=== PATIENT | male | born 1980 | race Two or more races ===

== ENCOUNTER 2022-08-07 15:57 | Inpatient (IN) | payer OTHER ==
[~2022-08-07] VITALS: Ht 175.3 cm; Wt 124.0 kg
[2022-08-07] VITALS (7 sets, daily range): BP systolic 139–164; BP diastolic 95–106
[2022-08-07 16:37] LABS: Basophils # (auto) 0 10 ^3/uL (0-0.2); Basophils % (auto) 0.6 % (0.0-2.0); Eosinophils # (auto) 0.2 10 ^3/uL (0-0.8); Eosinophils % (auto) 2.4 % (0.0-7.0); Hematocrit 47.6 % (41.0-53.0); Lymphocytes % (auto) 24.8 % (10.0-50.0); Mean Corpuscular Hemoglobin 28.7 pg (28.0-32.0); Mean Corpuscular Hgb Conc. 33.6 g/dL (32.0-36.0); Mean Corpuscular Volume 85.3 fL (80.0-100.0); Monocytes # (auto) 0.4 10 ^3/uL (0-1.3); Monocytes % (auto) 5.3 % (0.0-12.0); Neutrophils # (auto) 5.5 10 ^3/uL (1.6-8.6); Neutrophils % (auto) 66.9 % (37.0-80.0); Nucleated Red Blood Cells % 0.8 %; Red Blood Cells 5.58 10^6/uL (4.5-5.90); Red Cell Distribution Width 15.3 % (11.8-14.3); White Blood Cell 8.2 10^3/uL (4.4-10.8)
[2022-08-07] MEDS ORDERED: hydrALAZINE HCL 20 MG/ML VL IV ONE (16:45)
[2022-08-07 16:59] LABS: Calcium 8.8 mg/dL (8.5-10.1); Magnesium 2.4 mg/dL (1.6-2.6); Potassium 3.9 mmol/L (3.5-5.1)
[2022-08-07 17:03] LABS: BUN/Creatinine Ratio 11.6 (10.0-20.0); Bilirubin, Total 1.9 mg/dL (0.2-1.0); Total Protein 7.6 g/dL (6.4-8.2)
[2022-08-07 17:19] LABS: INR 0.97 (0.9-1.15); Partial Thromboplastin Time 26.8 sec (24.6-33.4)
[2022-08-07] MEDS ORDERED: ASPirin 81 mg TAB PO ONE (18:15)
[2022-08-07] MEDS ORDERED: NITROGLYCERIN 50MG/250ML 250 ML IV SCH (18:15)
[2022-08-07] MEDS ORDERED: NITROGLYCERIN 0.4 MG SL TAB SL PRN (18:45)
[2022-08-07] MEDS ORDERED: ENOXAPARIN SOD 100 MG/1 ML SYRINGE SC ONE (18:45)
[2022-08-07] MEDS ORDERED: MORPHINE SULFATE INJ 2 MG/ml SYRG IV PRN (18:45)
[2022-08-07] MEDS ORDERED: SODIUM CHLORIDE 0.9% 1,000 ML IV SCH (18:45)
[2022-08-07 18:53] LABS: Cholesterol 149 mg/dL (< 200)
[2022-08-07 18:56] LABS: HDL Cholesterol 19 mg/dL (40-59); LDL Cholesterol 103 mg/dL (< 100); Triglycerides 261 mg/dL (< 150)
[2022-08-07] MEDS: ONDANSETRON HCL 4 MG/2 ML VIAL IV PRN (18:59)
[2022-08-07] MEDS: ATORVASTATIN 20 MG TAB PO SCH (23:36)
[2022-08-08] VITALS (43 sets, daily range): BP systolic 143–200; BP diastolic 83–137
[2022-08-08] MEDS: hydrALAZINE HCL 20 MG/ML VL IV PRN ×2 (02:28→13:48)
[2022-08-08] MEDS: ACETAMINOPHEN 325 MG TAB PO PRN ×2 (03:35→16:31)
[2022-08-08 03:48] LABS: Urine Bacteria NONE SEEN /hpf (None Seen); Urine Blood Negative /uL (Negative); Urine Hyaline Cast FEW /lpf (0 - 2); Urine Mucus FEW (None Seen); Urine Specific Gravity 1.018 (1.001-1.035); Urine WBC 1 /hpf (0 - 3)
[2022-08-08 04:11] LABS: Basophils # (auto) 0.1 10 ^3/uL (0-0.2); Basophils % (auto) 0.5 % (0.0-2.0); Eosinophils # (auto) 0.1 10 ^3/uL (0-0.8); Eosinophils % (auto) 0.7 % (0.0-7.0); Hematocrit 44.8 % (41.0-53.0); Hemoglobin 15.2 g/dL (13.5-17.5); Lymphocytes # (auto) 1.8 10 ^3/uL (0.4-5.4); Lymphocytes % (auto) 19.6 % (10.0-50.0); Mean Corpuscular Hgb Conc. 33.9 g/dL (32.0-36.0); Mean Corpuscular Volume 85.6 fL (80.0-100.0); Monocytes # (auto) 0.7 10 ^3/uL (0-1.3); Monocytes % (auto) 6.9 % (0.0-12.0); Neutrophils # (auto) 6.8 10 ^3/uL (1.6-8.6); Neutrophils % (auto) 72.3 % (37.0-80.0); Nucleated Red Blood Cells % 0.1 %; Red Blood Cells 5.23 10^6/uL (4.5-5.90); Red Cell Distribution Width 15.5 % (11.8-14.3); White Blood Cell 9.4 10^3/uL (4.4-10.8)
[2022-08-08 04:27] LABS: Albumin 3.7 g/dL (3.4-5.0); Calcium 8.6 mg/dL (8.5-10.1); Potassium 3.8 mmol/L (3.5-5.1)
[2022-08-08 04:30] LABS: BUN/Creatinine Ratio 12.6 (10.0-20.0); Total Protein 7.3 g/dL (6.4-8.2)
[2022-08-08] MEDS ORDERED: ENOXAPARIN SOD 100 MG/1 ML SYRINGE SC SCH (07:00)
[2022-08-08] MEDS ORDERED: HCTZ 25 MG TAB PO ONE (08:00)
[2022-08-08] MEDS ORDERED: LISINOPRIL 20 MG TAB PO ONE (08:00)
[2022-08-08 08:34] LABS: Alcohol, Urine < 3.0 mg/dL (0-10); Amphetamine Screen, Urine NEGATIVE (NEGATIVE); Barbiturate Scree,Urine NEGATIVE (NEGATIVE); Benzodiazephine Screen, Urine NEGATIVE (NEGATIVE); Cannabinoid Screen, Urine NEGATIVE (NEGATIVE); Cocaine Screen, Urine NEGATIVE (NEGATIVE); Phencyclidine Screen, Urine NEGATIVE (NEGATIVE)
[2022-08-08 09:11] LABS: Opiate Scree,Urine NEGATIVE (NEGATIVE)
[2022-08-08] MEDS: amLODIPine BESYLATE 5 MG TAB PO SCH (10:58)
[2022-08-08] MEDS: ENOXAPARIN SOD 120 MG/0.8 ML SYRINGE SC SCH ×2 (10:58→21:04)
[2022-08-08] MEDS: ASPirin 81 mg TAB PO SCH (10:58)
[2022-08-08] MEDS ORDERED: cloNIDine HCL 0.1 MG TAB PO PRN (15:30)
[2022-08-08] MEDS: hydrALAZINE HCL 25 MG TAB PO SCH ×2 (17:56→23:57)
[2022-08-08] MEDS: ATORVASTATIN 20 MG TAB PO SCH (21:04)
[2022-08-08] MEDS ORDERED: ATORVASTATIN 20 MG TAB PO SCH (22:00)
[2022-08-09 05:00] VITALS: BP 163/102
[2022-08-09] MEDS: hydrALAZINE HCL 25 MG TAB PO SCH ×4 (06:00→23:01)
[2022-08-09 06:13] LABS: Basophils # (auto) 0.1 10 ^3/uL (0-0.2); Basophils % (auto) 0.7 % (0.0-2.0); Eosinophils # (auto) 0.2 10 ^3/uL (0-0.8); Hemoglobin 15.6 g/dL (13.5-17.5); Lymphocytes # (auto) 1.8 10 ^3/uL (0.4-5.4); Lymphocytes % (auto) 19.7 % (10.0-50.0); Mean Corpuscular Hemoglobin 28.8 pg (28.0-32.0); Mean Corpuscular Hgb Conc. 33.8 g/dL (32.0-36.0); Mean Corpuscular Volume 85.1 fL (80.0-100.0); Monocytes # (auto) 0.8 10 ^3/uL (0-1.3); Monocytes % (auto) 8.4 % (0.0-12.0); Neutrophils # (auto) 6.3 10 ^3/uL (1.6-8.6); Neutrophils % (auto) 69.2 % (37.0-80.0); Nucleated Red Blood Cells % 0.2 %; Red Blood Cells 5.41 10^6/uL (4.5-5.90); Red Cell Distribution Width 15.3 % (11.8-14.3); White Blood Cell 9.1 10^3/uL (4.4-10.8)
[2022-08-09 06:40] LABS: Potassium 3.6 mmol/L (3.5-5.1)
[2022-08-09 07:37] LABS: Albumin 3.7 g/dL (3.4-5.0)
[2022-08-09 07:41] LABS: BUN/Creatinine Ratio 11.8 (10.0-20.0); Bilirubin, Total 2.8 mg/dL (0.2-1.0); Calcium 8.6 mg/dL (8.5-10.1)
[2022-08-09 07:42] LABS: Total Protein 7.1 g/dL (6.4-8.2)
[2022-08-09 09:00] VITALS: BP 144/88
[2022-08-09] MEDS: amLODIPine BESYLATE 5 MG TAB PO SCH (09:17)
[2022-08-09] MEDS: ENOXAPARIN SOD 120 MG/0.8 ML SYRINGE SC SCH ×2 (09:17→22:38)
[2022-08-09] MEDS: ASPirin 81 mg TAB PO SCH (09:17)
[2022-08-09] MEDS: HCTZ 25 MG TAB PO SCH (09:18)
[2022-08-09] MEDS: LISINOPRIL 20 MG TAB PO SCH (09:18)
[2022-08-09] MEDS ORDERED: LISINOPRIL 20 MG TAB PO SCH (10:00)
[2022-08-09] MEDS ORDERED: HCTZ 25 MG TAB PO SCH (10:00)
[2022-08-09] MEDS: CARVEDILOL 3.125 MG TAB PO SCH ×2 (11:36→22:39)
[2022-08-09 13:00] VITALS: BP_SYST 145; BP_SYST 161; BP_DIAS 106; BP_DIAS 110
[2022-08-09 17:26] VITALS: BP 133/87
[2022-08-09 22:00] VITALS: BP 152/91
[2022-08-09] MEDS: ATORVASTATIN 20 MG TAB PO SCH (22:38)
[2022-08-10 05:00] VITALS: BP 148/99
[2022-08-10] MEDS: hydrALAZINE HCL 25 MG TAB PO SCH ×4 (06:17→21:24)
[2022-08-10 09:00] VITALS: BP 160/118
[2022-08-10] MEDS: amLODIPine BESYLATE 5 MG TAB PO SCH (09:33)
[2022-08-10] MEDS: HCTZ 25 MG TAB PO SCH (09:34)
[2022-08-10] MEDS: CARVEDILOL 3.125 MG TAB PO SCH (09:35)
[2022-08-10] MEDS: LISINOPRIL 20 MG TAB PO SCH (09:37)
[2022-08-10] MEDS: ASPirin 81 mg TAB PO SCH (09:37)
[2022-08-10] MEDS: ENOXAPARIN SOD 120 MG/0.8 ML SYRINGE SC SCH ×2 (09:38→21:24)
[2022-08-10 13:00] VITALS: BP 151/107
[2022-08-10 16:45] VITALS: BP 167/110
[2022-08-10] MEDS ORDERED: hydrALAZINE HCL 25 MG TAB PO SCH (18:45)
[2022-08-10] MEDS: CARVEDILOL 12.5 MG TAB PO SCH (21:24)
[2022-08-10] MEDS: ATORVASTATIN 20 MG TAB PO SCH (21:24)
[2022-08-10 22:00] VITALS: BP 147/99
[2022-08-11] VITALS (7 sets, daily range): BP systolic 122–144; BP diastolic 73–98
[2022-08-11 06:10] LABS: Basophils # (auto) 0.1 10 ^3/uL (0-0.2); Basophils % (auto) 0.7 % (0.0-2.0); Eosinophils # (auto) 0.3 10 ^3/uL (0-0.8); Eosinophils % (auto) 3.2 % (0.0-7.0); Hematocrit 49.5 % (41.0-53.0); Hemoglobin 16.8 g/dL (13.5-17.5); Lymphocytes # (auto) 2.1 10 ^3/uL (0.4-5.4); Lymphocytes % (auto) 26.5 % (10.0-50.0); Mean Corpuscular Hemoglobin 28.8 pg (28.0-32.0); Mean Corpuscular Hgb Conc. 33.9 g/dL (32.0-36.0); Mean Corpuscular Volume 85.1 fL (80.0-100.0); Monocytes # (auto) 0.9 10 ^3/uL (0-1.3); Monocytes % (auto) 11.4 % (0.0-12.0); Neutrophils # (auto) 4.7 10 ^3/uL (1.6-8.6); Neutrophils % (auto) 58.2 % (37.0-80.0); Nucleated Red Blood Cells % 0.8 %; Red Blood Cells 5.82 10^6/uL (4.5-5.90); Red Cell Distribution Width 15.6 % (11.8-14.3)
[2022-08-11] MEDS: hydrALAZINE HCL 25 MG TAB PO SCH ×3 (06:37→22:06)
[2022-08-11 06:39] LABS: Calcium 9.1 mg/dL (8.5-10.1); Potassium 3.9 mmol/L (3.5-5.1)
[2022-08-11 06:45] LABS: Albumin 3.7 g/dL (3.4-5.0); BUN/Creatinine Ratio 13.6 (10.0-20.0); Bilirubin, Total 1.5 mg/dL (0.2-1.0); Total Protein 7.7 g/dL (6.4-8.2)
[2022-08-11] MEDS: SODIUM CHLORIDE 0.9% 1,000 ML IV SCH ×2 (08:48→20:20)
[2022-08-11] MEDS: LISINOPRIL 20 MG TAB PO SCH (09:38)
[2022-08-11] MEDS: ASPirin 81 mg TAB PO SCH (09:38)
[2022-08-11] MEDS: amLODIPine BESYLATE 5 MG TAB PO SCH (09:39)
[2022-08-11] MEDS: HCTZ 25 MG TAB PO SCH (09:39)
[2022-08-11] MEDS: ENOXAPARIN SOD 120 MG/0.8 ML SYRINGE SC SCH ×2 (09:39→22:08)
[2022-08-11] MEDS: CARVEDILOL 12.5 MG TAB PO SCH ×2 (09:39→22:07)
[2022-08-11] MEDS ORDERED: ASPI-325 PO (16:49)
[2022-08-11] MEDS ORDERED: HYDR100T22 PO (16:49)
[2022-08-11] MEDS ORDERED: CAR125T PO (16:49)
[2022-08-11] MEDS ORDERED: ATOR20TA50 PO (16:49)
[2022-08-11] MEDS ORDERED: AMLO-496 PO (16:49)
[2022-08-11] MEDS ORDERED: HYDR25TA5 PO (16:49)
[2022-08-11] MEDS ORDERED: LISI40TA11 PO (16:49)
[2022-08-11] MEDS: ACETAMINOPHEN 325 MG TAB PO PRN (16:52)
[2022-08-11] MEDS ORDERED: HYDROcodone-ACET 7.5/325MG TAB PO PRN ×2 (17:15)
[2022-08-11] MEDS: ONDANSETRON HCL 4 MG/2 ML VIAL IV PRN (17:55)
[2022-08-11] MEDS: ATORVASTATIN 20 MG TAB PO SCH (22:07)
[2022-08-12] MEDS: ACETAMINOPHEN 325 MG TAB PO PRN (02:52)
[2022-08-12 05:00] VITALS: BP 125/92
[2022-08-12 06:29] LABS: Calcium 9.4 mg/dL (8.5-10.1); Potassium 3.4 mmol/L (3.5-5.1)
[2022-08-12 06:30] LABS: BUN/Creatinine Ratio 14.2 (10.0-20.0)
[2022-08-12] MEDS: hydrALAZINE HCL 25 MG TAB PO SCH ×2 (06:34→13:57)
[2022-08-12] MEDS: SODIUM CHLORIDE 0.9% 1,000 ML IV SCH (09:40)
[2022-08-12] MEDS: ENOXAPARIN SOD 120 MG/0.8 ML SYRINGE SC SCH (10:02)
[2022-08-12] MEDS: amLODIPine BESYLATE 5 MG TAB PO SCH (10:03)
[2022-08-12] MEDS: LISINOPRIL 20 MG TAB PO SCH (10:03)
[2022-08-12] MEDS: ASPirin 81 mg TAB PO SCH (10:04)
[2022-08-12] MEDS: CARVEDILOL 12.5 MG TAB PO SCH (10:04)
[2022-08-12] MEDS: HCTZ 25 MG TAB PO SCH (10:11)
== END 2022-08-12 14:18 | disposition home or self-care (01) | DRG 281 ==
LOC: ER 15:57 → TELE 18:52 → TELE-WESTW 21:42 → ICU WEST 21:47 → TELE-WESTW 08-08 21:38
PROVIDERS: ADMIT Nurse Practitioner Family; ATTEND Family Medicine
PROC: 5A09357 Assistance with Respiratory Ventilation, Less than 24 Consecutive Hours, Continuous Positive Airway Pressure (ICD-10-PCS; principal; 2022-08-08)
DX: I16.1 Hypertensive emergency (principal); I21.A1 Myocardial infarction type 2; I42.0 Dilated cardiomyopathy; N17.9 Acute kidney failure, unspecified; Z68.41 Body mass index [BMI] 40.0-44.9, adult; I50.20 Unspecified systolic (congestive) heart failure; I11.0 Hypertensive heart disease with heart failure; I27.20 Pulmonary hypertension, unspecified; E66.01 Morbid (severe) obesity due to excess calories; E78.2 Mixed hyperlipidemia; E78.5 Hyperlipidemia, unspecified; F17.210 Nicotine dependence, cigarettes, uncomplicated; R73.03 Prediabetes; Z79.899 Other long term (current) drug therapy; Z82.3 Family history of stroke; Z82.49 Family history of ischemic heart disease and other diseases of the circulatory system; Z91.199 Patient's noncompliance with other medical treatment and regimen due to unspecified reason
CPT/HCPCS: 36415; 70450; 71045; 80048; 80053; 80061; 80307; 81001; 83036; 83735; 83880; 84443; 84484; 85025; 85379; 85610; 85730; 87081; 93005; 93306; 96372; 96374; 96375; G0378; J2405

== ENCOUNTER 2024-10-26 14:25 | Inpatient (IN) | payer MEDICAID ==
[~2024-10-26] VITALS: Ht 175.3 cm; Wt 121.2 kg
[~2024-10-26 14:25] MED LIST: AMLO1TAB23 PO; ASPI-325 PO; ATOR20TA50 PO; CARV-216 PO; HYDR100T22 PO; HYDR25TA5 PO; LISI40TA16 PO
--- NOTE | 2024-10-26 14:55 | ED.PDOC ---
History of Present Illness HPI Comments This is a 43-year-old male with past medical history of uncontrolled hypertension, CHF, gastritis presented to the ED with a chief complaint of epigastric pain,bloating and constipation for 1 month getting worse that prompted this visit. He also complains of shortness of breath and bilateral leg swelling for the same duration. He mentioned that 1 year ago he underwent upper GI endoscopy in [place] and was diagnosed with gastritis and hiatal hernia. He mentioned taking only captopril 25 mg for high blood pressure. The patient does not have any PCP. In the ED his blood pressure was 203/106. Chief Complaint: Abdominal Pain Time Seen by MD: 14:26 Primary Care Provider: NONE Allergies: Coded Allergies: NO KNOWN ALLERGIES (Unverified , 08/07/22) Home Meds Active Scripts Hydralazine HCl (Hydralazine Hydrochloride) 100 Mg Tab, 100 MG PO Q8HR for 90 Days, #270 TAB Prov:TANMAY OCONNELL MD 08/11/22 Hctz (Hydrochlorothiazide) 25 Mg Tab, 50 MG PO DAILY for 90 Days, #180 TAB Prov:TANMAY OCONNELL MD 08/11/22 Amlodipine Besylate (Amlodipine Besylate) 10 Mg Tab, 10 MG PO DAILY for 90 Days, #90 TAB Prov:TANMAY OCONNELL MD 08/11/22 Lisinopril (Lisinopril) 40 Mg Tab, 40 MG PO DAILY for 90 Days, #90 TAB Prov:TANMAY OCONNELL MD 08/11/22 Carvedilol (COREG) 12.5 Mg Tab, 12.5 MG PO Q12HR for 90 Days, #180 TAB Prov:TANMAY OCONNELL MD 08/11/22 Atorvastatin Calcium (ATORVASTATIN CALCIUM) 20 Mg Tab, 20 MG PO HS for 90 Days, #90 TAB Prov:TANMAY OCONNELL MD 08/11/22 Aspirin (Aspirin Low Dose) 81 Mg Tab, 81 MG PO DAILY for 90 Days, #90 TAB Prov:TANMAY OCONNELL MD 08/11/22 Information Source: Patient Mode of Arrival: Ambulatory Severity: Moderate Timing: Days Duration: Since onset Prehospital treatment: None Past Medical History PAST MEDICAL HISTORY: CHF, HTN, PUD Surgical History: Unknown, Denies all surgeries Family History Family History: Reviewed,noncontributory to illness, Family hx of HTN, Family hx of stroke Social History Smoker: Non-Smoker Alcohol: Occasionally Drugs: Denies Drug Use Lives In: Home Constitutional: denies: chills, diaphoresis, fatigue, fever, malaise, sweats, weakness, others EENTM: denies: blurred vision, double vision, ear bleeding, ear discharge, ear drainage, ear pain, ear ringing, eye pain, eye redness, hearing loss, mouth pain, mouth swelling, nasal discharge, nose bleeding, nose congestion, nose pain, photophobia, tearing, throat pain, throat swelling, voice changes, others Respiratory: reports: shortness of breath Cardiovascular: reports: edema Gastrointestinal: reports: abdominal pain, constipated Genitourinary: denies: burning, dysuria, flank pain, frequency, hematuria, incontinence, penile discharge, penile sore, pain, testicle pain, testicle swelling, urgency, others Neurological: denies: dizziness, fainting, headache, left sided numbness, left sided weakness, numbness, paresthesia, pre-existing deficit, right sided numbness, right sided weakness, seizure, speech problems, tingling, tremors, weakness, others Musculoskeletal: denies: back pain, gout, joint pain, joint swelling, muscle pain, muscle stiffness, neck pain, others Integumetry: denies: bruises, change in color, change in hair/nails, dryness, laceration, lesions, lumps, rash, wounds, others Endocrine: denies: excessive hunger, excessive sweating, excessive thirst, excessive urination, flushing, intolerance to cold, intolerance to heat, unexplained weight gain, unexplained weight loss, others Psychiatric: denies: anxiety, bipolar disorder, depression, hopeless, panic disorder, schizophrenia, sleepless, suicidal, others Physical Exam General Appearance: Obese HEENT: Normal ENT Inspection, Pharynx Normal, TMs Normal Neck: Full Range of Motion, Non-Tender, Normal, Normal Inspection Respiratory: Lungs Clear Cardiovascular: No Edema, No JVD, No Murmur, No Gallop, Normal Peripheral Pulses, Regular Rate/Rhythm Breast Exam: Deferred Gastrointestinal: Epigastric, Normal Bowel Sounds, Tenderness Genitalia: Deferred Pelvic: Deferred Rectal: Deferred Extremities: No calf tenderness, Normal capillary refill, Normal inspection, Normal range of motion, Non-tender, No pedal edema Neurologic: NOT DONE Cerebellar Function: NOT DONE Reflexes: NOT DONE Skin: NOT DONE Peripheral Pulses: 3+ carotid (R), 3+ carotid (L), 3+ femoral (R), 3+ femoral (L), 3+ dorsalis pedis (R), 3+ dorsalis pedis (L), 3+ Radial (R), 3+ Radial (L), 3+ Brachial (R), 3+ Brachial (L) Lymphatic: NOT DONE Was a procedure done? Was a procedure done?: No Differential Dx Considerations may include: Hypertensive emergency, NSTEMI, CHF, CKD, cirrhosis of liver, pancreatitis X-Ray, Labs, Meds, VS Vital Signs Date Time Temp Pulse Resp B/P (MAP) Pulse Ox O2 Delivery O2 Flow Rate FiO2 10/26/24 14:30 98.2 89 24 219/56 95 98.2 203/149 Lab Test 10/26/24 14:57 Range/Units White Blood Count 6.7 4.4-10.8 10^3/uL Red Blood Count 5.31 4.5-5.90 10^6/uL Hemoglobin 14.6 13.5-17.5 g/dL Hematocrit 45.0 41.0-53.0 % Mean Corpuscular Volume 84.8 80.0-100.0 fL Mean Corpuscular Hemoglobin 27.6 L 28.0-32.0 pg Mean Corpuscular Hemoglobin Concent 32.5 32.0-36.0 g/dL Red Cell Distribution Width 16.9 H 11.8-14.3 % Platelet Count 277 140-450 10^3/uL Mean Platelet Volume 8.5 6.9-10.8 fL Neutrophils (%) (Auto) 51.8 37.0-80.0 % Lymphocytes (%) (Auto) 33.8 10.0-50.0 % Monocytes (%) (Auto) 11.2 0.0-12.0 % Eosinophils (%) (Auto) 2.0 0.0-7.0 % Basophils (%) (Auto) 1.2 0.0-2.0 % Neutrophils # (Auto) 3.5 1.6-8.6 10 ^3/uL Lymphocytes # (Auto) 2.3 0.4-5.4 10 ^3/uL Monocytes # (Auto) 0.8 0-1.3 10 ^3/uL Eosinophils # (Auto) 0.1 0-0.8 10 ^3/uL Basophils # (Auto) 0.1 0-0.2 10 ^3/uL Nucleated Red Blood Cells 0.2 % Sodium Level 141 136-145 mmol/L Potassium Level 4.6 3.5-5.1 mmol/L Chloride Level 105 98-107 mmol/L Carbon Dioxide Level 28 20-31 mmol/L Anion Gap 8 5-15 Blood Urea Nitrogen 19 9-23 mg/dL Creatinine 1.56 H 0.700-1.30 mg/dL Glomerular Filtration Rate Calc 57 >90 mL/min BUN/Creatinine Ratio 12.2 10.0-20.0 Serum Glucose 93 74-106 mg/dL Calcium Level 9.1 8.7-10.4 mg/dL Magnesium Level 2.0 1.6-2.6 mg/dL Total Bilirubin 3.4 H 0.2-1.0 mg/dL Aspartate Amino Transferase (AST) 43 H 13-40 U/L Alanine Aminotransferase (ALT) 41 H 7-40 U/L Alkaline Phosphatase 81 46-116 U/L Troponin I High Sensitivity 250 *H </=54 ng/L Total Protein 6.8 5.7-8.2 g/dL Albumin 4.2 3.2-4.8 g/dL Lipase 54 H 12-53 U/L Images Reviewed?: Images reviewed and evaluated by me Time of 1ST Reevaluation: 15:50 Reevaluation 1ST: Unchanged Patient Education/Counseling: Diagnosis, Treatment Family Education/Counseling: No Family Present SEPSIS Sepsis Screen Physician Orders Troponin-I Hs (10/27/24 00:00) Urinalysis (10/26/24 14:50) Troponin-I Hs (10/26/24 15:50) Troponin-I Hs (10/26/24 17:50) Chest Portable (10/26/24 14:50) Electrocardigram (10/26/24 14:53) B-Type Natriuretic Peptide (10/26/24 14:55) Abdomen Complete Sonogram (10/26/24 14:50) Vital Signs Date Time Temp Pulse Resp B/P (MAP) Pulse Ox O2 Delivery O2 Flow Rate FiO2 10/26/24 14:30 98.2 89 24 219/56 95 98.2 203/149 Laboratory Tests Test 7/30/25 14:57 White Blood Count 6.7 10^3/uL (4.4-10.8) Departure 1 Departure Time of Disposition: 15:51 Impression: Primary Impression: Hypertensive emergency Additional Impression: NSTEMI, initial episode of care Disposition: 30 STILL A PATIENT Admit to: Tele Condition: Guarded Critical Care Note Critical Care Time?: No Stability Stability form required: KEITH Ortiz RESIDENT Oct 26, 2024 14:55
[2024-10-26 15:15] LABS: Hematocrit 45.0 % (41.0-53.0); Hemoglobin 14.6 g/dL (13.5-17.5); Mean Corpuscular Hemoglobin 27.6 pg (28.0-32.0); Mean Corpuscular Volume 84.8 fL (80.0-100.0); Nucleated Red Blood Cells % 0.2 %
--- NOTE | 2024-10-26 15:16 | DVH ---
CHEST RADIOGRAPH Indication: sob Technique: Single frontal view of the chest was obtained COMPARISON: XY CHEST PORTABLE on DOS: 08/07/22 FINDINGS: Lines and Tubes: None Lungs: Congestion Pleura: No effusion. No pneumothorax. Cardiomediastinal contours: Cardiomegaly Bones: Unremarkable IMPRESSION: Mild pulmonary vascular congestion
[2024-10-26 15:32] LABS: Albumin 4.2 g/dL (3.2-4.8); Alkaline Phosphatase 81 U/L (46-116); Anion Gap 8 (5-15); BUN/Creatinine Ratio 12.2 (10.0-20.0); Blood Urea Nitrogen 19 mg/dL (9-23); Calcium 9.1 mg/dL (8.7-10.4); Carbon Dioxide 28 mmol/L (20-31); Chloride 105 mmol/L (98-107); Glucose 93 mg/dL (74-106); Magnesium 2.0 mg/dL (1.6-2.6); Potassium 4.6 mmol/L (3.5-5.1); Sodium 141 mmol/L (136-145); Total Protein 6.8 g/dL (5.7-8.2)
[2024-10-26 15:35] LABS: Alanine Aminotransferase 41 U/L (7-40); Bilirubin, Total 3.4 mg/dL (0.2-1.0); Lipase 54 U/L (12-53)
--- NOTE | 2024-10-26 16:30 | DVH ---
COMPLETE ABDOMINAL ULTRASOUND HISTORY: epigastric pain TECHNIQUE: Grayscale and color-flow Doppler ultrasound examination of the abdomen was performed. COMPARISON: None Findings: Liver measures 18.2 cm in length with homogenous echotexture and normal contours. No evidence of damaris d or cystic hepatic lesions, or intrahepatic ductal dilatation. Common bile duct measures 0.4 cm in d iameter. Normal hepatopedal flow within the portal vein. Bilateral pleural effusions. Trace ascites. Gallbladder is contracted. No evidence of biliary sludge, shadowing calculi or pericholecystic fluid. Negative sonographic Cummings's sign. Pancreas not well visualized. Spleen appears within normal limits measuring 11.9 cm with homogenous echotexture and normal contours . Right kidney measures 11.3 cm. Left kidney measures 11.6 cm. Normal renal contours, echotexture and c ortical thickness bilaterally. No evidence of hydronephrosis, nephrolithiasis, cystic or solid renal lesions. Visualized portions of the abdominal aorta are grossly unremarkable, measuring up to 2.4 cm. Partiall y visualized inferior vena cava is grossly unremarkable with normal flow on color Doppler imaging. Impression: 1. No acute abdominal abnormalities. 2. Hepatomegaly. 3. Bilateral pleural effusions. 4. Trace ascites. 5. Ectatic abdominal aorta.
[2024-10-26 17:37] VITALS: PULSE 83; RESP 18; O2SAT 97
[2024-10-26] MEDS: LABETALOL HCL 20 MG/4 ML VL IV ONE ×2 (17:39→22:15)
[2024-10-26] MEDS: hydrALAZINE HCL 20 MG/ML VL IV ONE (19:42)
[2024-10-26] MEDS ORDERED: LABETALOL HCL 20 MG/4 ML VL IV PRN (20:15)
--- NOTE | 2024-10-26 20:15 | DVHHPRES ---
History of Present Illness Resident Creating Document: ERNIE KUNZ RESIDENT History of Present Illness This is a 43-year-old male who recently came from [place] 1 month back with take ulcer disease, hypertension, congestive heart failure noncompliant medications, former alcoholic dependence who presented to the ER with a chief complaint of abdominal pain for about a month. Patient recently underwent EGD in [facility] a month back which showed gastritis and he has been taking pantoprazole but the abdominal pain has not been relieved. It is epigastric in location, does not radiate, exacerbates on eating and is continuous. Patient also reports shortness of breaths on exertion and bending down, orthopnea and that he sleeps in a recliner, he was diagnosed with CHF 2 years back but does not take any medications. He denies lower extremity swelling. Past medical history: Peptic ulcer disease, hypertension, congestive heart failure, noncompliant, former alcoholic dependence Past surgical history: Denies Home medications: Captopril 25 mg, pantoprazole Social history: Lives in [place], came from [place] 1 month back, previous heavy drinker, quit drinking 6 years back, now drinks occasionally per month, denies drug use or smoking. PCP: None Patient seen and examined in ER. Has bilateral crackles, bilateral lower extremity 2+ pitting edema, epigastric tenderness, jaundice. Review of Systems Allergies: Coded Allergies: NO KNOWN ALLERGIES (Unverified , 08/07/22) Exam Vital Signs Vital Signs Date Time Temp Pulse Resp B/P (MAP) Pulse Ox O2 Delivery O2 Flow Rate FiO2 10/26/24 19:40 81 18 191/150 (164) 97 10/26/24 17:37 Room Air* 0 21 10/26/24 17:35 97.4 97.4 Exam Patient sitting comfortably in the bed, on room air, has jaundice , looks ill General: Obese,, afebrile, palor, mucosae are moist Cardiovascular: Regular S1 and S2. No murmurs, gallops or rubs. No JVD elevation. Bilateral 2+ pitting edema. Respiratory: N bilateral coarse crackles heard on auscultation, on room air Abdomen: Soft, epigastric tenderness, nondistended, normoactive bowel sounds, no rebound tenderness, no organomegaly, no masses Genitourinary: Deferred MSK/skin: Mobilizes 4 limbs. Skin is dry and warm Neurological: No motor, no sensitive deficits, normal speech. Pupils are isocoric and reactive. Psych/Mental Status: A/Ox3 Labs/Xrays Labs Test 10/26/24 18:32 10/26/24 14:57 Range/Units Troponin I High Sensitivity 247 *H </=54 ng/L White Blood Count 6.7 4.4-10.8 10^3/uL Red Blood Count 5.31 4.5-5.90 10^6/uL Hemoglobin 14.6 13.5-17.5 g/dL Hematocrit 45.0 41.0-53.0 % Mean Corpuscular Volume 84.8 80.0-100.0 fL Mean Corpuscular Hemoglobin 27.6 L 28.0-32.0 pg Mean Corpuscular Hemoglobin Concent 32.5 32.0-36.0 g/dL Red Cell Distribution Width 16.9 H 11.8-14.3 % Platelet Count 277 140-450 10^3/uL Mean Platelet Volume 8.5 6.9-10.8 fL Neutrophils (%) (Auto) 51.8 37.0-80.0 % Lymphocytes (%) (Auto) 33.8 10.0-50.0 % Monocytes (%) (Auto) 11.2 0.0-12.0 % Eosinophils (%) (Auto) 2.0 0.0-7.0 % Basophils (%) (Auto) 1.2 0.0-2.0 % Neutrophils # (Auto) 3.5 1.6-8.6 10 ^3/uL Lymphocytes # (Auto) 2.3 0.4-5.4 10 ^3/uL Monocytes # (Auto) 0.8 0-1.3 10 ^3/uL Eosinophils # (Auto) 0.1 0-0.8 10 ^3/uL Basophils # (Auto) 0.1 0-0.2 10 ^3/uL Nucleated Red Blood Cells 0.2 % Sodium Level 141 136-145 mmol/L Potassium Level 4.6 3.5-5.1 mmol/L Chloride Level 105 98-107 mmol/L Carbon Dioxide Level 28 20-31 mmol/L Anion Gap 8 5-15 Blood Urea Nitrogen 19 9-23 mg/dL Creatinine 1.56 H 0.700-1.30 mg/dL Glomerular Filtration Rate Calc 57 >90 mL/min BUN/Creatinine Ratio 12.2 10.0-20.0 Serum Glucose 93 74-106 mg/dL Calcium Level 9.1 8.7-10.4 mg/dL Magnesium Level 2.0 1.6-2.6 mg/dL Total Bilirubin 3.4 H 0.2-1.0 mg/dL Aspartate Amino Transferase (AST) 43 H 13-40 U/L Alanine Aminotransferase (ALT) 41 H 7-40 U/L Alkaline Phosphatase 81 46-116 U/L B-Type Natriuretic Peptide 1569.28 0-100 pg/mL Total Protein 6.8 5.7-8.2 g/dL Albumin 4.2 3.2-4.8 g/dL Lipase 54 H 12-53 U/L SEPSIS Sepsis Screen Date sepsis recognized/suspect: Oct 26, 2024 Time Sepsis recognized/suspect: 1429 Recent Procedure: No On Antibiotic Therapy: No Respiratory Rate >20: Yes Heart Rate >90: No Temp<36 C (96.8 F) or >38.3 C: No SBP <90 or MAP <65 mmHG: No New Acute Mental Status Change: No Is the patient on CPAP, BIPAP,: No Physician Orders Troponin-I Hs (10/27/24 00:00) Urinalysis (10/26/24 14:50) Chest Portable (10/26/24 14:50) Electrocardigram (10/26/24 14:53) Abdomen Complete Sonogram (10/26/24 14:50) * Cardiology Consult (10/26/24 15:58) Admit (10/26/24 19:41) Vital Signs Date Time Temp Pulse Resp B/P (MAP) Pulse Ox O2 Delivery O2 Flow Rate FiO2 10/26/24 19:40 81 18 191/150 (164) 97 10/26/24 18:39 82 166/111 10/26/24 18:05 74 18 166/111 (129) 97 10/26/24 17:39 83 192/135 10/26/24 17:37 83 18 97 Room Air* 0 21 10/26/24 17:35 97.4 83 18 192/135 (154) 97 97.4 10/26/24 14:30 98.2 89 24 219/56 95 98.2 203/149 Laboratory Tests Test 10/26/24 14:57 White Blood Count 6.7 10^3/uL (4.4-10.8) Medications Medications Dose Ordered Sig/Nai Route Start Time Stop Time Status Last Admin Dose Admin Labetalol HCl 5 mg ONCE ONCE IV 10/26/24 15:00 10/26/24 15:01 DC 10/26/24 17:39 5 MG Assessment/Plan Assessment/Plan Acute abdominal pain likely peptic ulcer disease Gastritis and hiatal hernia history Pantoprazole IV 40 mg daily Carafate TID Acute on chronic congestive heart failure exacerbation Uncontrolled hypertension Hypertensive emergency with flash pulmonary edema NSTEMI type 1 versus type 2 Critical pulmonary hypertension, RVSP 70 BNP 1500 Echocardiogram pending IV Lasix 40 mg daily Strict I&Os, fluid restriction, cardiac diet Echocardiogram 08/08/2022 shows LVEF 35%, moderate TR Likely congestive hepatopathy Hepatomegaly secondary to Chronic alcoholic hepatitis Pending PT/INR Follow up with CMP Thiamine and folic supplemented UDS pending Acute kidney injury likely secondary to above Urine electrolytes pending Lovenox 40 mg sc daily Pantoprazole Plan discussed with patient in which all questions have been answered Goals of care discussed with the patient, for more than 20 minutes, full code status Case discussed with Dr. Elam Plan discussed with: Patient My Orders Orders - ERNIE KUNZ Procedure Category Date Status Time Admit ADMIT 10/26/24 Verified 19:41 Date of Service: Oct 26, 2024 Billing Provider: MELISSA ELAM MD Common Visit Codes: [id number] INP/OBS CARE (HIGH) ERNIE KUNZ Oct 26, 2024 20:15
[2024-10-26] MEDS: FOLIC ACID 1 MG TAB PO ONE (21:06)
[2024-10-26] MEDS: PANTOPRAZOLE 40 MG/10 ML VIAL INJ IV ONE (21:06)
[2024-10-26] MEDS: MULTIPLE VITAMIN TAB PO ONE (21:06)
[2024-10-26] MEDS: SUCRALFATE 1 GM/10 ML ORAL SUSP PO ONE (21:06)
[2024-10-26] MEDS: THIAMINE 100mg/ml INJ (200mg/2ml VIAL) IV ONE (21:08)
[2024-10-26] MEDS: MORPHINE SULFATE INJ 2 MG/ml SYRG IV ONE (21:08)
[2024-10-26] MEDS: FUROSEMIDE 40 MG/4 ML VIAL IV ONE (21:09)
[2024-10-26] MEDS ORDERED: hydrALAZINE HCL 20 MG/ML VL IV PRN (21:45)
[2024-10-26] MEDS ORDERED: MORPHINE SULFATE INJ 2 MG/ml SYRG IV PRN (22:00)
[2024-10-26] MEDS ORDERED: HYDROcodone-ACET 5/325MG TAB PO PRN (22:00)
[2024-10-26 22:49] LABS: INR 1.31 (0.9-1.15); Partial Thromboplastin Time 25.6 SEC (24.5-34.5); Prothrombin Time 13.5 sec (9.3-11.8)
[2024-10-27] VITALS (9 sets, daily range): BP systolic 118–149; BP diastolic 78–93; PULSE 61–79; RESP 14–20; TEMP 97.5–98; O2SAT 94–98
[2024-10-27] MEDS: hydrALAZINE HCL 20 MG/ML VL IV PRN (02:57)
[2024-10-27 05:04] LABS: Urine Protein, UAD Negative (Negative)
[2024-10-27 05:12] LABS: Barbiturate Scree,Urine Neg (NEGATIVE); Opiate Scree,Urine Neg (NEGATIVE)
[2024-10-27 05:13] LABS: Amphetamine Screen, Urine Neg (NEGATIVE); Benzodiazephine Screen, Urine Neg (NEGATIVE); Cannabinoid Screen, Urine Neg (NEGATIVE); Cocaine Screen, Urine Neg (NEGATIVE); Phencyclidine Screen, Urine Neg (NEGATIVE)
[2024-10-27 05:24] LABS: Protein, Urine 9.6 mg/dL (1-14)
[2024-10-27] MEDS: SUCRALFATE 1 GM/10 ML ORAL SUSP PO SCH (06:38)
[2024-10-27] MEDS: FUROSEMIDE 40 MG/4 ML VIAL IV SCH (06:38)
[2024-10-27 06:42] LABS: Hematocrit 46.0 % (41.0-53.0); Hemoglobin 15.2 g/dL (13.5-17.5); Mean Corpuscular Hemoglobin 27.7 pg (28.0-32.0); Mean Corpuscular Volume 83.6 fL (80.0-100.0); Nucleated Red Blood Cells % 0.5 %
[2024-10-27 06:51] LABS: Albumin 4.7 g/dL (3.2-4.8); Alkaline Phosphatase 81 U/L (46-116); Anion Gap 15 (5-15); Blood Urea Nitrogen 16 mg/dL (9-23); Calcium 10.2 mg/dL (8.7-10.4); Carbon Dioxide 24 mmol/L (20-31); Chloride 103 mmol/L (98-107); Glucose 96 mg/dL (74-106); Sodium 142 mmol/L (136-145); Total Protein 7.7 g/dL (5.7-8.2)
[2024-10-27 06:52] LABS: Alanine Aminotransferase 42 U/L (7-40); BUN/Creatinine Ratio 12.2 (10.0-20.0); Potassium 3.1 mmol/L (3.5-5.1)
[2024-10-27 06:54] LABS: Bilirubin, Total 4.4 mg/dL (0.2-1.0)
[2024-10-27] MEDS: POTASSIUM CHL 20MEQ/100ML 100 ML IV SCH (08:29)
--- NOTE | 2024-10-27 09:27 | DVHINCON2 ---
Date Seen: Oct 27, 2024 Referring Physician MD Angelito resident Reason for Consultation Hypertensive emergency, elevated troponin History of Present Illness This is a 43-year-old male patient who presents to emergency room with chief complaint of abdominal pain for one month. Patient also mentioned shortness of breath for the last few weeks. Upon emergency room arrival, the patient was noted to have blood pressure readings as high as 219/56. Cardiology has been consulted at this time for hypertensive emergency. Initial twelve lead elect rocardiogram reveals sinus rhythm with first degree conduction delay, left ventricular hypertrophy, and nonspecific diffuse ST segment changes. Initial troponin level of 250ng/L with flat trend thereafter. Significant past medical history includes congestive heart failure, hypertension, dyslipidemia, pulmonary hypertension, H pylori, and obesity. The states that he does not follow up with a manager media in the outpatient setting. The patient has not been compliant with his heart failure medications. Past Medical History Past medical history reviewed. No other significant than mentioned above. Past Surgical History Denies any previous surgeries Family History: Cerebrovascular accident (CVA) G8 MOTHER Family History Family history reviewed. Social History Denies the use of tobacco, alcohol or illicit drugs. Allergies: Coded Allergies: NO KNOWN ALLERGIES (Unverified , 08/07/22) Home Meds Active Scripts Hydralazine HCl (Hydralazine Hydrochloride) 100 Mg Tab, 100 MG PO Q8HR for 90 Days, #270 TAB Prov:TANMAY OCONNELL MD 08/11/22 Hctz (Hydrochlorothiazide) 25 Mg Tab, 50 MG PO DAILY for 90 Days, #180 TAB Prov:TANMAY OCONNELL MD 08/11/22 Amlodipine Besylate (Amlodipine Besylate) 10 Mg Tab, 10 MG PO DAILY for 90 Days, #90 TAB Prov:TANMAY OCONNELL MD 08/11/22 Lisinopril (Lisinopril) 40 Mg Tab, 40 MG PO DAILY for 90 Days, #90 TAB Prov:TANMAY OCONNELL MD 08/11/22 Carvedilol (COREG) 12.5 Mg Tab, 12.5 MG PO Q12HR for 90 Days, #180 TAB Prov:TANMAY OCONNELL MD 08/11/22 Atorvastatin Calcium (ATORVASTATIN CALCIUM) 20 Mg Tab, 20 MG PO HS for 90 Days, #90 TAB Prov:TANMAY OCONNELL MD 08/11/22 Aspirin (Aspirin Low Dose) 81 Mg Tab, 81 MG PO DAILY for 90 Days, #90 TAB Prov:TANMAY OCONNELL MD 08/11/22 Home Meds Home medications reviewed. Current Medications Current Medications Medications (Trade) Dose Ordered Sig/Nai Route PRN Reason Start Time Stop Time Status Last Admin Labetalol HCl (Labetalol HCl) 10 mg Q4HP PRN IV SBP>150 10/26/24 20:15 10/26/24 21:44 DC Furosemide (Lasix Injection) 40 mg BIDD IV 10/27/24 06:00 10/27/24 06:38 Pantoprazole Sodium (Protonix) 40 mg DAILY IV 10/27/24 10:00 Sucralfate (Carafate Susp) 1 gm TID@0600,1130,2200 PO 10/27/24 06:00 10/27/24 06:38 Folic Acid 1 mg DAILY PO 10/27/24 10:00 Multivitamins (Mvi Tab) 1 tab DAILY PO 10/27/24 10:00 Hydralazine HCl (Apresoline Injection) 10 mg Q6HP PRN IV SBP>150 10/26/24 21:45 10/26/24 21:51 DC Nifedipine (Procardia Xl (Time-Release)) 60 mg DAILY PO 10/27/24 10:00 10/27/24 07:06 DC Acetaminophen (Tylenol Tablet Or Capsule) 500 mg Q4HPRN PRN PO MILD PAIN (1-3 PAIN SCALE) 10/26/24 22:00 Morphine Sulfate 1 mg Q4HPRN PRN IV SEVERE PAIN (7-10 PAIN SCALE) 10/26/24 22:00 Acetaminophen/ Hydrocodone Bitart ([place]ie 5/325MG Tab) 1 tab Q4HPRN PRN PO SEVERE PAIN (7-10 PAIN SCALE) 10/26/24 22:00 Hydralazine HCl (Apresoline Injection) 10 mg Q6HP PRN IV SBP>170 10/26/24 22:00 10/27/24 02:57 Nifedipine (Procardia Xl (Time-Release)) 90 mg DAILY PO 10/27/24 10:00 Potassium Chloride 100 ml @ 50 mls/hr Q2H IV 10/27/24 07:15 10/27/24 11:14 10/27/24 08:29 Review of Systems Constitutional: No symptom reported Ears, Nose, & Throat: No symptom reported Eyes: No symptom reported Neurological: No symptoms reported Pulmonary/Respiratory: Shortness of breath Cardiovascular: No symptom reported Gastrointestinal: Abdominal pain Genitourinary: No symptom reported Musculoskeletal: No symptom reported Skin: No symptom reported Psychiatric: No symptom reported Endocrine: No symptom reported Hematologic/Lymphatic: No symptom reported Vital Signs Vital Signs Date Time Temp Pulse Resp B/P (MAP) Pulse Ox O2 Delivery O2 Flow Rate FiO2 10/27/24 08:00 97.7 73 16 142/84 (103) 96 97.7 10/27/24 07:30 Room Air* 0 21 Physical Exam General Appearance: Cooperative. Obese Pulmonary/Respiratory: Clear, bilateral breaths sounds. Cardiovascular/Chest: Regular rate and rhythm. Peripheral Pulses: 2+ Radial (R). 2+ Radial (L). 2+ Pedal (R). 2+ Pedal (L) Abdominal Exam: Normal bowel sounds. Ankle Exam: 2+ pitting edema Lower extremities: 2+ pitting edema Neuro/Mental Status: A/OX4, coherent. Thoughts/Psych: Normal thought pattern. Appropriate mood and affect. Good judgment and insight. Appearance: No acute distress. Skin Exam: Normal inspection. Normal color. Warm and dry. Labs/Diagnostic Data Labs Test 10/27/24 05:55 10/27/24 04:20 10/26/24 22:17 10/26/24 20:34 Range/Units White Blood Count 9.3 # 4.4-10.8 10^3/uL Red Blood Count 5.51 4.5-5.90 10^6/uL Hemoglobin 15.2 13.5-17.5 g/dL Hematocrit 46.0 41.0-53.0 % Mean Corpuscular Volume 83.6 80.0-100.0 fL Mean Corpuscular Hemoglobin 27.7 L 28.0-32.0 pg Mean Corpuscular Hemoglobin Concent 33.1 32.0-36.0 g/dL Red Cell Distribution Width 17.3 H 11.8-14.3 % Platelet Count 270 140-450 10^3/uL Mean Platelet Volume 8.7 6.9-10.8 fL Neutrophils (%) (Auto) 66.4 37.0-80.0 % Lymphocytes (%) (Auto) 22.5 10.0-50.0 % Monocytes (%) (Auto) 9.3 0.0-12.0 % Eosinophils (%) (Auto) 1.0 0.0-7.0 % Basophils (%) (Auto) 0.8 0.0-2.0 % Neutrophils # (Auto) 6.2 1.6-8.6 10 ^3/uL Lymphocytes # (Auto) 2.1 0.4-5.4 10 ^3/uL Monocytes # (Auto) 0.9 0-1.3 10 ^3/uL Eosinophils # (Auto) 0.1 0-0.8 10 ^3/uL Basophils # (Auto) 0.1 0-0.2 10 ^3/uL Nucleated Red Blood Cells 0.5 % Platelet Estimate Adequate Clumped Platelets None Sodium Level 142 136-145 mmol/L Potassium Level 3.1 L 3.5-5.1 mmol/L Chloride Level 103 98-107 mmol/L Carbon Dioxide Level 24 20-31 mmol/L Anion Gap 15 5-15 Blood Urea Nitrogen 16 9-23 mg/dL Creatinine 1.31 H 0.700-1.30 mg/dL Glomerular Filtration Rate Calc 70 >90 mL/min BUN/Creatinine Ratio 12.2 10.0-20.0 Serum Glucose 96 74-106 mg/dL Calcium Level 10.2 8.7-10.4 mg/dL Total Bilirubin 4.4 H 0.2-1.0 mg/dL Aspartate Amino Transferase (AST) 42 H 13-40 U/L Alanine Aminotransferase (ALT) 42 H 7-40 U/L Alkaline Phosphatase 81 46-116 U/L Total Protein 7.7 5.7-8.2 g/dL Albumin 4.7 3.2-4.8 g/dL Urine Color Colorless Yellow Urine Clarity Clear Clear Urine pH 7.0 5.0-9.0 Urine Specific [place] 1.007 1.001-1.035 Urine Protein Negative Negative Urine Ketones Trace Negative Urine Blood Negative Negative /uL Urine Nitrite Negative Negative Urine Bilirubin Negative Negative Urine Urobilinogen Normal Negative mg/dL Urine Leukocyte Esterase Negative Negative /uL Urine RBC None seen 0 - 3 /hpf Urine Microscopic WBC < 1 0-3 /HPF Urine Squamous Epithelial Cells None seen <5 /hpf Urine Bacteria None seen None Seen /hpf Urine Creatinine 24.26 L 30.0-125.0 mg/dL Urine Protein/Creatinine Ratio 0.40 Urine Sodium 136 40-220 mmol/L Urine Glucose Normal Normal mg/dL Urine Total Protein 9.6 1-14 mg/dL Urine Opiates Screen Neg NEGATIVE Urine Fentanyl Screen Neg NEGATIVE Urine Barbiturates Screen Neg NEGATIVE Urine Phencyclidine Screen Neg NEGATIVE Urine Amphetamines Screen Neg NEGATIVE Urine Benzodiazepines Screen Neg NEGATIVE Urine Cocaine Screen Neg NEGATIVE Urine Cannabinoids Screen Neg NEGATIVE Prothrombin Time 13.5 H 9.3-11.8 sec Prothrombin Time INR 1.31 H 0.9-1.15 Activated Partial Thromboplast Time 25.6 24.5-34.5 SEC Troponin I High Sensitivity 241 *H </=54 ng/L Plasma/Serum Blood Alcohol 3.8 <10 mg/dL Test 10/26/24 14:57 Range/Units Hemoglobin A1c 5.9 H <5.7 % A1C Magnesium Level 2.1 1.6-2.6 mg/dL B-Type Natriuretic Peptide 1569.28 0-100 pg/mL Lipase 54 H 12-53 U/L Vitamin B12 Level 686 211-911 pg/mL Vitamin D 25-Hydroxy 43.0 30.0-100 ng/mL Thyroid Stimulating Hormone (TSH) 2.19 0.55-4.78 uIU/mL Assessment NSTEMI, likely type II in the setting of hypertensive emergency History of HFrEF, NYHA class II History of severe pulmonary hypertension Hypokalemia Acute kidney injury Obesity Plan/Recommendation We will continue with the following plan/recommendations (Dr. Alonso): * Transthoracic echocardiogram to evaluate cardiac function * Previous transthoracic echocardiogram from 08/08/2022 reveals an EF of 35%, RVSP 70 mmHg * Initiate guideline directed medical therapy for CHF as renal function permits * Initiate ARNI with improved creatinine * Recommend to discontinue CCB * Strict intake and output, daily weights, maintain fluid restriction * Renal ultrasound * Renin and aldosterone levels * Monitor and replete electrolytes as needed * Close Cardiac surveillance Thank you for allowing us to care for this patient. Please call with any questions or concerns. Critical care time spent: 44 minutes This medical document was created using an electronic medical record system with voice recognition software and computerized dictation system. Although this document has been carefully reviewed, there might still be some phonetic and typographical errors. Occasional wrong-word or ``sound-alike substitutions may have occurred due to the inherent limitations of voice recognition software. These areas are purely typographical due to imperfections of the software programs and do not reflect any compromise in the patient's medical care. Please read the chart carefully and recognize, using context, where these substitutions have occurred. Plan discussed with: Patient NYHA Physical activity limitations: Class2(Slight)fatigue,sob (palpitatns, angina w activityv) Date of Service: Oct 27, 2024 Billing Provider: ANUEL WEEMS Cardiology Common Codes: [id number] INP/OBS CARE (High) Cardiology Consultation Codes: [id number] CONSULT <45MIN ANUEL WEEMS Oct 27, 2024 09:27
[2024-10-27] MEDS: FOLIC ACID 1 MG TAB PO SCH (10:52)
[2024-10-27] MEDS: MULTIPLE VITAMIN TAB PO SCH (10:52)
[2024-10-27] MEDS: PANTOPRAZOLE 40 MG/10 ML VIAL INJ IV SCH (11:11)
[2024-10-27] MEDS: EMPAGLIFLOZIN 10 MG TAB PO SCH (13:58)
[2024-10-27] MEDS: SPIRONOLACTONE 25 MG TAB PO ONE (13:58)
[2024-10-27] MEDS: CARVEDILOL 3.125 MG TAB PO ONE (13:59)
--- NOTE | 2024-10-27 15:21 | DVH ---
RENAL ULTRASOUND WITH DOPPLER CLINICAL INDICATION: Hypertension TECHNIQUE: Multiple grayscale, color Doppler and spectral Doppler ultrasound images were obtained thr ough the urinary system. COMPARISON: US ABDOMEN COMPLETE SONOGRAM on DOS: 10/26/24 FINDINGS: Right Kidney: Measures 11.2 cm. No hydronephrosis. The intrarenal resistive indices are normal, rang ing 0.31-0.63 Systolic acceleration is normal. Peak systolic velocity within the right renal artery is 48 cm/s. The right renal vein is patent. Renal artery PSV / aorta PSV ratio: 2.8 Left Kidney: Measures 11.3 cm. No hydronephrosis. The intrarenal resistive indices are normal, rangin g 0.5-0.65. Systolic acceleration is normal. Peak systolic velocity within the right renal artery i s 65 cm/s. The left renal vein is patent. Renal artery PSV / aorta PSV ratio: 2 Aorta: Visualized portions are normal in caliber. Peak systolic velocity in the proximal aorta is 13 6 cm/s. IMPRESSION: Normal size kidneys without evidence of renal artery stenosis or hydronephrosis.
--- NOTE | 2024-10-27 18:30 | DVHPNRES ---
Progress Note Date Seen: Oct 27, 2024 Resident Creating Document: YRIS NORRIS RESIDENT Medical Necessity Reason Pt with a Central, PICC or Fol: No Subjective Review of Systems This is a 43-year-old male who recently came from [place] 1 month back with take ulcer disease, hypertension, congestive heart failure noncompliant medications, former alcoholic dependence who presented to the ER with a chief complaint of abdominal pain for about a month. Patient recently underwent EGD in [facility] a month back which showed gastritis and he has been taking pantoprazole but the abdominal pain has not been relieved. It is epigastric in location, does not radiate, exacerbates on eating and is continuous. Patient also reports shortness of breaths on exertion and bending down, orthopnea and that he sleeps in a recliner, he was diagnosed with CHF 2 years back but does not take any medications. He denies lower extremity swelling. 10/27/24 Patient seen in the ER. Patient is alert x3, in mild distress, he states that he feels better than yesterday but he complains of cramping in the abdomen and right upper arm probably due to hypokalemia. Patient is on 2.5 L oxygen, does not use home oxygen, reports mild shortness of the breath today. On examination patient has mild bibasilar crackles, and his jaundice has improved, 1+ bilateral pitting edema, and mild epigastric pain on palpation. He feels bloated and constipated. His abdominal ultrasound shows hepatomegaly, bilateral pleural effusion, ascites, hepatomegaly. Renal artery duplex shows Normal size kidneys without evidence of renal artery stenosis or hydronephrosis. Patient had hypokalemia and potassium was replaced. Patient states that he will have his EGD reports tomorrow. Objective vital signs Vital Sign Date Time Temp Pulse Resp B/P (MAP) Pulse Ox O2 Delivery O2 Flow Rate FiO2 10/27/24 17:57 141/93 10/27/24 17:33 98.0 61 14 96 98.0 10/27/24 07:30 Room Air* 0 21 medications Current Medications Medications Dose Ordered Sig/Nai Route Start Time Stop Time Status Last Admin Dose Admin Furosemide 40 mg BIDD IV 10/27/24 06:00 10/27/24 17:57 40 MG Pantoprazole Sodium 40 mg DAILY IV 10/27/24 10:00 10/27/24 11:11 40 MG Sucralfate 1 gm TID@0600,1130,2200 PO 10/27/24 06:00 10/27/24 12:13 1 GM Folic Acid 1 mg DAILY PO 10/27/24 10:00 10/27/24 10:52 1 MG Multivitamins 1 tab DAILY PO 10/27/24 10:00 10/27/24 10:52 1 TAB Acetaminophen 500 mg Q4HPRN PRN PO 10/26/24 22:00 Morphine Sulfate 1 mg Q4HPRN PRN IV 10/26/24 22:00 Acetaminophen/ Hydrocodone Bitart 1 tab Q4HPRN PRN PO 10/26/24 22:00 Hydralazine HCl 10 mg Q6HP PRN IV 10/26/24 22:00 10/27/24 02:57 10 MG Spironolactone 25 mg DAILY PO 10/28/24 10:00 Empaglifozin 10 mg DAILY PO 10/27/24 12:15 10/27/24 13:58 10 MG Carvedilol 6.25 mg Q12HR PO 10/27/24 22:00 Examination General: Patient alert and oriented in person, place and time. Patient following commands. HEENT: Normocephalic, atraumatic, moist mucous membranes Respiratory/pulmonary: Bibasilar crackles Cardiovascular: Normal heart sounds S1 and S2 with no associated murmurs Abdomen: Mild epigastric tenderness. Obese abdomen Extremities: Mild 1+ bilateral pitting edema Peripheral Pulses: 3+ Radial (R). 3+ Radial (L). 3+ Dorsalis pedis (R). 3+ Dorsalis pedis(L) Skin: No rashes or pruritus, there is no sacral edema present at this time. Neurological: Intact cranial nerves with no focal neurologic deficits laboratory and microbiology Laboratory Tests 10/27/24 05:55 Test 10/27/24 05:55 Range/Units Serum Glucose 96 74-106 mg/dL Problem List/Assessment/Plan Problem List/Assessment/Plan #Acute abdominal pain likely peptic ulcer disease #Gastritis and hiatal hernia history -Pantoprazole IV 40 mg daily -Carafate TID - CT abdomen shows No acute abdominal abnormalities. Hepatomegaly. Trace ascites. - patient started on soft diet #Acute on chronic congestive heart failure exacerbation #Uncontrolled hypertension #Hypertensive emergency with flash pulmonary edema #NSTEMI type 1 versus type 2 Critical pulmonary hypertension, RVSP 70 BNP 1500 Echocardiogram pending IV Lasix 40 mg b.i.d Coreg 6.25 mg p.o. Q 12 Spironolactone 25 mg p.o. daily Jardiance 10 mg p.o. daily Discontinued nifedipine Strict I&Os, fluid restriction, Echocardiogram 08/08/2022 shows LVEF 35%, moderate TR # ruled out renal artery stenosis -Renal artery duplex shows Normal size kidneys without evidence of renal artery stenosis or hydronephrosis. 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 Hepatomegaly. Trace ascites. -PT /INR- 13.5/1.3 -Thiamine and folic supplemented -UDS negative #Acute kidney injury likely secondary to above Urine electrolytes pending # Hypokalemia -potassium 3.1 -potassium replaced #Obesity- BMI 41.9 -counseled regarding dietary modifications and physical exercise for 21 minutes. DVT PPX: Not indicated PPI PPX: Protonix 40 mg Goals of care discussed with patient for 29 minutes: Full code Case discussed with Dr. Hoskins Plan discussed with: Patient Date of Service: Oct 27, 2024 Billing Provider: KIRTI KINNEY MD Common Visit Codes: [id number] INP/OBS CARE(HIGH) YRIS NORRIS RESIDENT Oct 27, 2024 18:30 KIRTI KINNEY MD Oct 31, 2024 00:42
[2024-10-27] MEDS: CARVEDILOL 3.125 MG TAB PO SCH (22:01)
[2024-10-28] VITALS (10 sets, daily range): BP systolic 114–145; BP diastolic 68–97; PULSE 62–75; RESP 18–20; TEMP 97.3–98.8; O2SAT 94–99
[2024-10-28 06:29] LABS: Hematocrit 45.3 % (41.0-53.0); Hemoglobin 15.2 g/dL (13.5-17.5); Mean Corpuscular Hemoglobin 27.9 pg (28.0-32.0); Mean Corpuscular Volume 83.2 fL (80.0-100.0); Nucleated Red Blood Cells % 0.1 %
[2024-10-28 06:42] LABS: Chloride 103 mmol/L (98-107); Sodium 140 mmol/L (136-145)
[2024-10-28 06:43] LABS: Anion Gap 10 (5-15); Calcium 9.6 mg/dL (8.7-10.4); Carbon Dioxide 27 mmol/L (20-31); Potassium 3.5 mmol/L (3.5-5.1)
[2024-10-28 06:48] LABS: Glucose 89 mg/dL (74-106)
[2024-10-28 06:53] LABS: BUN/Creatinine Ratio 11.1 (10.0-20.0); Blood Urea Nitrogen 16 mg/dL (9-23)
[2024-10-28] MEDS: POTASSIUM CHL 20 Meq TABLET PO ONE (09:34)
[2024-10-28] MEDS ORDERED: SPIRONOLACTONE 25 MG TAB PO SCH (10:00)
--- NOTE | 2024-10-28 10:29 | DVHSR ---
APPROVED REPORT EXAM: Two-dimensional and M-mode echocardiogram with Doppler and color Doppler. Blood Pressure: 147/101 mmHg INDICATION chf exacerbation RISK FACTORS Obesity: Height: 5'9, Weight: 284 DIMENSIONS LVDd5.9 (3.8-5.7cm)LA (2D)5.2 (1.9-4.0cm)Aortic Root3.7 (2.0-3.7cm) LVDs4.6 (2.5-4.0cm)LA (MM) (1.9-4.0cm)Aortic Cusp Exc1.7 (1.5-2.0cm) EF (%) 45.0 (55-70%)Rt. Atrium4.8 (1.9-4.0cm)Asc. Aorta3.9 cm IVSd1.2 (0.7-1.1cm)RV (D) (1.8-2.4cm) PWd1.3 (0.7-1.1cm) Mitral Valve MitralMitral Stenosis E wave0.91m/sMV Mean GR.mmHg A wave0.40m/sMV Peak GR.37mmHg E/A ratio2.32D MVAcm2 DECEL [id number] 1/2 Timems Aortic Valve Aortic ValveAortic Stenosis V10.96m/Johnie Mean GR.7mmHg V21.52m/Johnie Peak GR.9mmHg LVOT Diameter2.3 (1.8-2.4cm)Doppler AVA2.62cm2 Pulmonic Valve V21.29m/s Tricuspid Valve TR Velocity2.74m/s [id number] Conclusion Sinus rhythm. Concentric LVH with biatrial enlargement. Dilation of the sinuses of Valsalva. Mild aortic sclerosis. No critical stenosis. The mitral and tricuspid are structurally normal. Left ventricular systolic performance is diminished. EF is about 30 % with global hypokinesis. Righ t ventricular function is normal. Dopplers unremarkable. Moderate tricuspid regurgitation. Moderate pulmonary hypertension identified . No pericardial effusion masses or vegetations.
[2024-10-28] MEDS: GASTROGRAFIN 120 ML SOL ONE (12:38)
--- NOTE | 2024-10-28 15:25 | DVHPN2 ---
Consult Progress Note Subjective Other Systems: Patient in normal sinus rhythm at time of assessment Denies any cardiac symptoms Objective vital signs Vital Sign Date Time Temp Pulse Resp B/P (MAP) Pulse Ox O2 Delivery O2 Flow Rate FiO2 10/28/24 14:58 96 Room Air 0.0 10/28/24 14:58 21 10/28/24 13:00 98.8 71 20 131/87 (102) 98.8 Total Intake and Output 10/27/24 10/27/24 10/28/24 15:00 23:00 07:00 Intake Total 120 ml 50 ml Output Total 700 ml Balance -700 ml 120 ml 50 ml medications Current Medications Medications Dose Ordered Sig/Nai Route Start Time Stop Time Status Last Admin Dose Admin Pantoprazole Sodium 40 mg DAILY IV 10/27/24 10:00 10/28/24 09:34 40 MG Sucralfate 1 gm TID@0600,1130,2200 PO 10/27/24 06:00 10/28/24 11:31 1 GM Folic Acid 1 mg DAILY PO 10/27/24 10:00 10/28/24 09:36 1 MG Multivitamins 1 tab DAILY PO 10/27/24 10:00 10/28/24 09:36 1 TAB Acetaminophen 500 mg Q4HPRN PRN PO 10/26/24 22:00 Morphine Sulfate 1 mg Q4HPRN PRN IV 10/26/24 22:00 Acetaminophen/ Hydrocodone Bitart 1 tab Q4HPRN PRN PO 10/26/24 22:00 Hydralazine HCl 10 mg Q6HP PRN IV 10/26/24 22:00 10/27/24 02:57 10 MG Spironolactone 25 mg DAILY PO 10/28/24 10:00 Hold Empaglifozin 10 mg DAILY PO 10/27/24 12:15 10/28/24 09:35 10 MG Carvedilol 6.25 mg Q12HR PO 10/27/24 22:00 10/28/24 09:35 6.25 MG Furosemide 40 mg BIDD PO 10/28/24 18:00 Examination: GENERAL:Normal, LUNGS:Normal, CVS:Normal, NEURO:Normal laboratory and microbiology Laboratory Tests 10/28/24 05:07 Test 10/28/24 14:30 Range/Units Serum Glucose Pending Problem List/Assessment/Plan Problem List/Assessment/Plan NSTEMI, likely type II in the setting of hypertensive emergency History of HFrEF, NYHA class II Moderate tricuspid valve regurgitation Pulmonary hypertension, moderate degree Hypokalemia Acute kidney injury Obesity Plan/Recommendations (Dr. Alonso): * Transthoracic echocardiogram reveals EF 30%, RVSP 52 mmHg * Initiate guideline directed medical therapy for CHF as renal function permits * Initiate ARNI with improved creatinine * Strict intake and output, daily weights, maintain fluid restriction * Aggressive BP control as tolerated * Renal ultrasound: No evidence of renal artery stenosis * Renin and aldosterone levels * Monitor and replete electrolytes as needed * Close Cardiac surveillance Thank you for allowing us to care for this patient. Please call with any questions or concerns. This medical document was created using an electronic medical record system with voice recognition software and computerized dictation system. Although this document has been carefully reviewed, there might still be some phonetic and typographical errors. Occasional wrong-word or ``sound-alike substitutions may have occurred due to the inherent limitations of voice recognition software. These areas are purely typographical due to imperfections of the software programs and do not reflect any compromise in the patient's medical care. Please read the chart carefully and recognize, using context, where these substitutions have occurred. Plan discussed with: Patient Date of Service: Oct 28, 2024 Billing Provider: ANUEL WEEMS Common Visit Codes: [id number] INP/OBS CARE(HIGH) ANUEL WEEMS Oct 28, 2024 15:25
[2024-10-28] MEDS ORDERED: VALS160T53 PO (15:42)
--- NOTE | 2024-10-28 16:14 | DVHPNRES ---
Progress Note Date Seen: Oct 28, 2024 Resident Creating Document: YRIS NORRIS RESIDENT Medical Necessity Reason Pt with a Central, PICC or Fol: No Subjective Review of Systems This is a 43-year-old male who recently came from [place] 1 month back with take ulcer disease, hypertension, congestive heart failure noncompliant medications, former alcoholic dependence who presented to the ER with a chief complaint of abdominal pain for about a month. Patient recently underwent EGD in [facility] a month back which showed gastritis and he has been taking pantoprazole but the abdominal pain has not been relieved. It is epigastric in location, does not radiate, exacerbates on eating and is continuous. Patient also reports shortness of breaths on exertion and bending down, orthopnea and that he sleeps in a recliner, he was diagnosed with CHF 2 years back but does not take any medications. He denies lower extremity swelling. 10/27/24 Patient seen in the ER. Patient is alert x3, in mild distress, he states that he feels better than yesterday but he complains of cramping in the abdomen and right upper arm probably due to hypokalemia. Patient is on 2.5 L oxygen, does not use home oxygen, reports mild shortness of the breath today. On examination patient has mild bibasilar crackles, and his jaundice has improved, 1+ bilateral pitting edema, and mild epigastric pain on palpation. He feels bloated and constipated. His abdominal ultrasound shows hepatomegaly, bilateral pleural effusion, ascites, hepatomegaly. Renal artery duplex shows Normal size kidneys without evidence of renal artery stenosis or hydronephrosis. Patient had hypokalemia and potassium was replaced. Patient states that he will have his EGD reports tomorrow. 10/28/24 Patient seen at bedside. Patient is alert x3, and comfortable, he states that he feels better and that the cramping in his stomach and legs have decreased. Patient is on room air, reports mild shortness of breath, patient denies any heartburn, regurgitation, he has no blood in his stools, has had a bowel movement in the morning. Patient states that he stops breathing when he sleeps, is sleepy during the day even while driving. CPAP/ BiPAP ordered for sleep. Gastrografin study done today pending results. Patient's past EGD on high had a hernia reducible,erosive esophagitis grade 1, acute diffuse gastritis on September [id number] Social service was consulted for insurance activation. Echo was done and shows Transthoracic echocardiogram reveals EF 30%, RVSP 52 mmHg. Cardiology consulted and recommended Initiate guideline directed medical therapy for CHF as renal function permits, Strict intake and output, daily weights, maintain fluid restriction. Objective vital signs Vital Sign Date Time Temp Pulse Resp B/P (MAP) Pulse Ox O2 Delivery O2 Flow Rate FiO2 10/28/24 14:58 96 Room Air 0.0 10/28/24 14:58 21 10/28/24 13:00 98.8 71 20 131/87 (102) 98.8 Total Intake and Output 10/27/24 10/27/24 10/28/24 15:00 23:00 07:00 Intake Total 120 ml 50 ml Output Total 700 ml Balance -700 ml 120 ml 50 ml medications Current Medications Medications Dose Ordered Sig/Nai Route Start Time Stop Time Status Last Admin Dose Admin Pantoprazole Sodium 40 mg DAILY IV 10/27/24 10:00 10/28/24 09:34 40 MG Sucralfate 1 gm TID@0600,1130,2200 PO 10/27/24 06:00 10/28/24 11:31 1 GM Folic Acid 1 mg DAILY PO 10/27/24 10:00 10/28/24 09:36 1 MG Multivitamins 1 tab DAILY PO 10/27/24 10:00 10/28/24 09:36 1 TAB Acetaminophen 500 mg Q4HPRN PRN PO 10/26/24 22:00 Morphine Sulfate 1 mg Q4HPRN PRN IV 10/26/24 22:00 Acetaminophen/ Hydrocodone Bitart 1 tab Q4HPRN PRN PO 10/26/24 22:00 Hydralazine HCl 10 mg Q6HP PRN IV 10/26/24 22:00 10/27/24 02:57 10 MG Spironolactone 25 mg DAILY PO 10/28/24 10:00 Hold Empaglifozin 10 mg DAILY PO 10/27/24 12:15 10/28/24 09:35 10 MG Carvedilol 6.25 mg Q12HR PO 10/27/24 22:00 10/28/24 09:35 6.25 MG Furosemide 40 mg BIDD PO 10/28/24 18:00 Patient Own Medication 1 DAILY PO 10/29/24 10:00 UNV Examination General: Patient alert and oriented in person, place and time. Patient following commands. HEENT: Normocephalic, atraumatic, moist mucous membranes Respiratory/pulmonary: Clear lungs bilaterally, vesicular murmurs present in almost all lung [place], no associated crackles or wheezes. Cardiovascular: Normal heart sounds S1 and S2 with no associated murmurs Abdomen: Abdomen nondistended, there is no pain to palpation in any of the abdominal quadrants, no palpable masses. Extremities: +1 bilateral pitting edema Peripheral Pulses: 3+ Radial (R). 3+ Radial (L). 3+ Dorsalis pedis (R). 3+ Dorsalis pedis(L) Skin: No rashes or pruritus, there is no sacral edema present at this time. Neurological: Intact cranial nerves with no focal neurologic deficits laboratory and microbiology Laboratory Tests 10/28/24 05:07 Test 10/28/24 14:30 Range/Units Serum Glucose Pending Problem List/Assessment/Plan Problem List/Assessment/Plan #Acute abdominal pain likely peptic ulcer disease #Gastritis and hiatal hernia history - Pantoprazole IV 40 mg daily - Carafate TID - CT abdomen shows No acute abdominal abnormalities. Hepatomegaly. Trace ascites. - patient started on soft mechanical diet - Gastrografin study done pending results - patient's past EGD on high had a hernia reducible,erosive esophagitis grade 1, acute diffuse gastritis on September 27 - pantoprazole BID at discharge #Acute on chronic congestive heart failure exacerbation #Uncontrolled hypertension #Hypertensive emergency with flash pulmonary edema #NSTEMI type 1 versus type 2 -Critical pulmonary hypertension, -BNP 1500 -Echocardiogram shows EF 30%, RVSP 52 mmHg. -Cardiology consulted and recommended Initiate guideline directed medical therapy for CHF as renal function permits, Strict intake and output, daily weights, maintain fluid restriction. -IV Lasix 40 mg b.i.d changed to Lasix 40 mg p.o. -Coreg 6.25 mg p.o. Q 12 -Spironolactone 25 mg p.o. daily -Jardiance 10 mg p.o. daily - patient is started on valsartan 160 mg-hydrochlorothiazide 12.5 mg -Discontinued nifedipine -Strict I&Os, fluid restriction, -Echocardiogram 08/08/2022 shows LVEF 35%, moderate TR - recommended left heart catheterization to be done outpatient # possible obstructive sleep apnea - CPAP/ BiPAP ordered for sleep # ruled out renal artery stenosis -Renal artery duplex shows Normal size kidneys without evidence of renal artery stenosis or hydronephrosis. 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 Hepatomegaly. Trace ascites. -PT /INR- 13.5/1.3 -Thiamine and folic supplemented -UDS negative #Acute kidney injury likely secondary to above - urine sodium 136 # Hypokalemia -potassium 3.1 -potassium replaced #Obesity- BMI 41.9 -counseled regarding dietary modifications and physical exercise for 21 minutes. DVT PPX: Not indicated PPI PPX: Protonix 40 mg Goals of care discussed with patient for 29 minutes: Full code Case discussed with Dr. Hoskins Plan discussed with: Patient Date of Service: Oct 28, 2024 Billing Provider: KIRTI KINNEY MD Common Visit Codes: [id number] INP/OBS CARE(HIGH) YRIS NORRIS RESIDENT Oct 28, 2024 16:14 KIRTI KINNEY MD Oct 31, 2024 00:46
[2024-10-28 16:57] LABS: Chloride 103 mmol/L (98-107); Potassium 3.4 mmol/L (3.5-5.1); Sodium 140 mmol/L (136-145)
[2024-10-28 16:58] LABS: Anion Gap 11 (5-15); Calcium 9.7 mg/dL (8.7-10.4); Carbon Dioxide 26 mmol/L (20-31)
[2024-10-28 17:03] LABS: BUN/Creatinine Ratio 11.8 (10.0-20.0); Blood Urea Nitrogen 21 mg/dL (9-23); Glucose 100 mg/dL (74-106)
[2024-10-28] MEDS ORDERED: POTASSIUM EFFERVESENT TAB 25 MEQ GT ONE (17:30)
[2024-10-28] MEDS: FUROSEMIDE 40 MG TAB PO SCH (17:53)
--- NOTE | 2024-10-28 17:59 | DVH ---
SMALL BOWEL FOLLOW-THROUGH REASON FOR EXAMINATION: Abdominal pain. Rule out gastric outlet obstruction. CONTRAST: 180 cc Gastrografin by mouth FLUOROSCOPY TIME: None. IMAGES: 12 images of the abdomen are submitted FINDINGS: The photoengraving apprentice film was unremarkable. Contrast was administered and serial films were obtained. The stomach was of normal size, position, and contour, without intrinsic or extrinsic mass lesions or mucosal abnormalities. The duodenal bulb and sweep were normal as visualized. There was normal trans it time through to the terminal ileum. No filling defects were present. The small bowel is of normal- caliber. Contrast reaches the cecum by 1 hour from the time of ingestion. Contrast reaches the rectum by the which was taken at 3 hours post ingestion. IMPRESSION: No evidence of gastric outlet obstruction or small-bowel obstruction.
[2024-10-28] MEDS: POTASSIUM EFFERVESENT TAB 25 MEQ PO ONE (18:48)
[2024-10-28] MEDS: SODIUM CHLORIDE 0.9% 250 ML IV ONE (20:00)
[2024-10-29] VITALS (9 sets, daily range): BP systolic 134–168; BP diastolic 92–113; PULSE 66–82; RESP 16–23; TEMP 97.8–98.4; O2SAT 90–100
[2024-10-29 07:14] LABS: Hematocrit 44.3 % (41.0-53.0); Hemoglobin 14.7 g/dL (13.5-17.5); Mean Corpuscular Hemoglobin 27.8 pg (28.0-32.0); Mean Corpuscular Volume 83.6 fL (80.0-100.0); Nucleated Red Blood Cells % 0.1 %
[2024-10-29 07:19] LABS: Anion Gap 13 (5-15); Carbon Dioxide 26 mmol/L (20-31); Chloride 102 mmol/L (98-107); Sodium 141 mmol/L (136-145)
[2024-10-29 07:21] LABS: Calcium 9.1 mg/dL (8.7-10.4)
[2024-10-29 07:25] LABS: BUN/Creatinine Ratio 12.3 (10.0-20.0); Blood Urea Nitrogen 19 mg/dL (9-23); Glucose 86 mg/dL (74-106)
[2024-10-29 07:27] LABS: Potassium 3.4 mmol/L (3.5-5.1)
[2024-10-29] MEDS: ACETAMINOPHEN 500 MG TAB or CAP PO PRN (07:59)
[2024-10-29] MEDS: VALSARTAN 80 MG TAB PO SCH (09:36)
[2024-10-29] MEDS: hydroCHLOROthiazide 25 MG TAB PO SCH (09:37)
[2024-10-29] MEDS ORDERED: PATIENTS OWN MEDICATION PO SCH (10:00)
[2024-10-29] MEDS ORDERED: POTASSIUM EFFERVESENT TAB 25 MEQ GT ONE (10:45)
[2024-10-29] MEDS: POTASSIUM EFFERVESENT TAB 25 MEQ PO ONE (11:46)
[2024-10-29] MEDS ORDERED: FURO40TA4 PO ×2 (14:30→15:20)
[2024-10-29] MEDS ORDERED: EMPA1TAB PO ×2 (14:30→15:20)
[2024-10-29] MEDS ORDERED: SUCR1SUS26 PO ×2 (14:30→15:20)
[2024-10-29] MEDS ORDERED: SPIR25TA PO ×2 (14:30→15:20)
[2024-10-29] MEDS ORDERED: CARV-214 PO ×2 (14:30→15:20)
[2024-10-29] MEDS ORDERED: VALS1TAB57 PO (15:20)
[2024-10-29] MEDS ORDERED: ASPI-325 PO (15:20)
[2024-10-29] MEDS ORDERED: ATOR20TA50 PO (15:20)
[2024-10-29] MEDS ORDERED: LOSA-534 PO (16:05)
--- NOTE | 2024-10-29 17:02 | DVHDSRES ---
Discharge Summary Date of Admission Resident Creating Document: YRIS NORRIS RESIDENT Oct 26, 2024 at 19:41 Date of Discharge: Oct 29, 2024 Admitting Diagnosis #Acute abdominal pain likely peptic ulcer disease Labs/Diagnostic Data: Laboratory Results Test 10/29/24 05:19 10/27/24 11:35 10/27/24 05:55 10/27/24 04:20 White Blood Count 8.3 10^3/uL (4.4-10.8) Red Blood Count 5.30 10^6/uL (4.5-5.90) Hemoglobin 14.7 g/dL (13.5-17.5) Hematocrit 44.3 % (41.0-53.0) Mean Corpuscular Volume 83.6 fL (80.0-100.0) Mean Corpuscular Hemoglobin 27.8 pg (28.0-32.0) Mean Corpuscular Hemoglobin Concent 33.2 g/dL (32.0-36.0) Red Cell Distribution Width 17.0 % (11.8-14.3) Platelet Count 304 10^3/uL (140-450) Mean Platelet Volume 8.4 fL (6.9-10.8) Neutrophils (%) (Auto) 62.7 % (37.0-80.0) Lymphocytes (%) (Auto) 21.4 % (10.0-50.0) Monocytes (%) (Auto) 12.2 % (0.0-12.0) Eosinophils (%) (Auto) 3.1 % (0.0-7.0) Basophils (%) (Auto) 0.6 % (0.0-2.0) Neutrophils # (Auto) 5.2 10 ^3/uL (1.6-8.6) Lymphocytes # (Auto) 1.8 10 ^3/uL (0.4-5.4) Monocytes # (Auto) 1.0 10 ^3/uL (0-1.3) Eosinophils # (Auto) 0.3 10 ^3/uL (0-0.8) Basophils # (Auto) 0.1 10 ^3/uL (0-0.2) Nucleated Red Blood Cells 0.1 % Sodium Level 141 mmol/L (136-145) Potassium Level 3.4 mmol/L (3.5-5.1) Chloride Level 102 mmol/L (98-107) Carbon Dioxide Level 26 mmol/L (20-31) Anion Gap 13 (5-15) Blood Urea Nitrogen 19 mg/dL (9-23) Creatinine 1.55 mg/dL (0.700-1.30) Glomerular Filtration Rate Calc 57 mL/min (>90) BUN/Creatinine Ratio 12.3 (10.0-20.0) Serum Glucose 86 mg/dL (74-106) Calcium Level 9.1 mg/dL (8.7-10.4) Platelet Estimate Adequate Clumped Platelets None Total Bilirubin 4.4 mg/dL (0.2-1.0) Aspartate Amino Transferase (AST) 42 U/L (13-40) Alanine Aminotransferase (ALT) 42 U/L (7-40) Alkaline Phosphatase 81 U/L (46-116) Total Protein 7.7 g/dL (5.7-8.2) Albumin 4.7 g/dL (3.2-4.8) Urine Color Colorless (Yellow) Urine Clarity Clear (Clear) Urine pH 7.0 (5.0-9.0) Urine Specific [place] 1.007 (1.001-1.035) Urine Protein Negative (Negative) Urine Ketones Trace (Negative) Urine Blood Negative /uL (Negative) Urine Nitrite Negative (Negative) Urine Bilirubin Negative (Negative) Urine Urobilinogen Normal mg/dL (Negative) Urine Leukocyte Esterase Negative /uL (Negative) Urine RBC None seen /hpf (0 - 3) Urine Microscopic WBC < 1 /HPF (0-3) Urine Squamous Epithelial Cells None seen /hpf (<5) Urine Bacteria None seen /hpf (None Seen) Urine Creatinine 24.26 mg/dL (30.0-125.0) Urine Protein/Creatinine Ratio 0.40 Urine Sodium 136 mmol/L (40-220) Urine Glucose Normal mg/dL (Normal) Urine Total Protein 9.6 mg/dL (1-14) Urine Opiates Screen Neg (NEGATIVE) Urine Fentanyl Screen Neg (NEGATIVE) Urine Barbiturates Screen Neg (NEGATIVE) Urine Phencyclidine Screen Neg (NEGATIVE) Urine Amphetamines Screen Neg (NEGATIVE) Urine Benzodiazepines Screen Neg (NEGATIVE) Urine Cocaine Screen Neg (NEGATIVE) Urine Cannabinoids Screen Neg (NEGATIVE) Test 10/26/24 22:17 10/26/24 20:34 10/26/24 14:57 Prothrombin Time 13.5 sec (9.3-11.8) Prothrombin Time INR 1.31 (0.9-1.15) Activated Partial Thromboplast Time 25.6 SEC (24.5-34.5) Troponin I High Sensitivity 241 ng/L (</=54) Plasma/Serum Blood Alcohol 3.8 mg/dL (<10) Hemoglobin A1c 5.9 % A1C (<5.7) Magnesium Level 2.1 mg/dL (1.6-2.6) B-Type Natriuretic Peptide 1569.28 pg/mL (0-100) Lipase 54 U/L (12-53) Vitamin B12 Level 686 pg/mL (211-911) Vitamin D 25-Hydroxy 43.0 ng/mL (30.0-100) Thyroid Stimulating Hormone (TSH) 2.19 uIU/mL (0.55-4.78) Other Laboratory Tests 10/29/24 05:19 Brief Hx & Hospital Course: This is a 43-year-old male who recently came from [place] 1 month back with take ulcer disease, hypertension, congestive heart failure noncompliant medications, former alcoholic dependence who presented to the ER with a chief complaint of abdominal pain for about a month. Patient recently underwent EGD in [facility] a month back which showed gastritis and he has been taking pantoprazole but the abdominal pain has not been relieved. It is epigastric in location, does not radiate, exacerbates on eating and is continuous. Patient also reports shortness of breaths on exertion and bending down, orthopnea and that he sleeps in a recliner, he was diagnosed with CHF 2 years back but does not take any medications. He denies lower extremity swelling. Brief hospital course: Patient came in with severe acute abdominal pain likely due to peptic ulcer disease, gastritis and hiatal hernia history, patient was given Protonix IV 40 mg daily, Carafate t.i.d., CT shows no acute abdominal abnormalities, hepatomegaly, trace ascites. Patient was started on soft mechanical diet was given Gastrografin study which shows nonobstructive bowel gas pattern. Patient's past EGD shows grade 1 hiatal hernia, erosive esophagitis grade 1, acute diffuse gastritis on September 27, 2024 patient is given pantoprazole b.i.d. at discharge. He has acute on chronic congestive heart failure exacerbation, uncontrolled hypertension, and hypertensive emergency with flash pulmonary edema for which BNP was 1500, echocardiogram shows EF of 30%, RVSP 52 mmHg. Cardiology was consulted and recommended to Initiate guideline directed medical therapy for CHF as renal function permits, Strict intake and output, daily weights, maintain fluid restriction. IV Lasix 40 mg b.i.d. was changed to Lasix 40 mg p.o., Coreg 6.25 mg p.o. q.12, spironolactone 25 mg p.o. daily, Jardiance 10 mg p.o. daily. Patient is started on valsartan 160 mg, hydrochlorothiazide 12.5 mg and was discontinued with nifedipine. his input output were monitored, was given fluid restriction, patient was recommended to have left heart catheterization to be done outpatient. For possible obstructive sleep apnea CPAP, BiPAP was ordered for sleep. To rule out renal artery stenosis renal artery duplex showed Normal size kidneys without evidence of renal artery stenosis or hydronephrosis. Patient was cleared from Nephrology. For likely hepatic congestion, hyperbilirubinemia with mild transaminitis, alcoholic liver disease CT was done and shows No acute abdominal abnormalities. Hepatomegaly. Trace ascites. PT/INR is 13.5/1.3. Thiamine and folic acid were supplemented. Full hypokalemia potassium was replaced. For obesity he was counseled on dietary modifications and physical exercise for over 20 minutes. Patient is stable for discharge. 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 General: Patient alert and oriented in person, place and time. Patient following commands. HEENT: Normocephalic, atraumatic, moist mucous membranes Respiratory/pulmonary: Clear lungs bilaterally, vesicular murmurs present in almost all lung [place], no associated crackles or wheezes. Cardiovascular: Normal heart sounds S1 and S2 with no associated murmurs Abdomen: Abdomen nondistended, there is no pain to palpation in any of the abdominal quadrants, no palpable masses. Extremities: There is no peripheral edema present at the lower extremities. Peripheral Pulses: 3+ Radial (R). 3+ Radial (L). 3+ Dorsalis pedis (R). 3+ Dorsalis pedis(L) Skin: No rashes or pruritus, there is no sacral edema present at this time. Neurological: Intact cranial nerves with no focal neurologic deficits Discharge instructions: Patient is recommended to continue cardiac diet Continue to take medications daily for heart failure, hypertension Take medication for peptic ulcer disease-Protonix 40 mg b.i.d. Operations or Procedures ORDERING PHYSICIAN: KEITH AZAR PROCEDURE(s): ABDC - ABDOMEN COMPLETE SONOGRAM REASON: epigastric pain ORDER NUMBER(s): [id number], ACCESSION NUMBER(s): [id number] COMPLETE ABDOMINAL ULTRASOUND HISTORY: epigastric pain TECHNIQUE: Grayscale and color-flow Doppler ultrasound examination of the abdomen was performed. COMPARISON: None Findings: Liver measures 18.2 cm in length with homogenous echotexture and normal contours. No evidence of solid or cystic hepatic lesions, or intrahepatic ductal dilatation. Common bile duct measures 0.4 cm in diameter. Normal hepatopedal flow within the portal vein. Bilateral pleural effusions. Trace ascites. Gallbladder is contracted. No evidence of biliary sludge, shadowing calculi or pericholecystic fluid. Negative sonographic Cummings's sign. Pancreas not well visualized. Spleen appears within normal limits measuring 11.9 cm with homogenous echotexture and normal contours. Right kidney measures 11.3 cm. Left kidney measures 11.6 cm. Normal renal contours, echotexture and cortical thickness bilaterally. No evidence of hydronephrosis, nephrolithiasis, cystic or solid renal lesions. Visualized portions of the abdominal aorta are grossly unremarkable, measuring up to 2.4 cm. Partially visualized inferior vena cava is grossly unremarkable with normal flow on color Doppler imaging. Impression: 1. No acute abdominal abnormalities. 2. Hepatomegaly. 3. Bilateral pleural effusions. 4. Trace ascites. 5. Ectatic abdominal aorta. ORDERING PHYSICIAN: KEITH AZAR PROCEDURE(s): CXRP - CHEST PORTABLE REASON: sob ORDER NUMBER(s): [id number], ACCESSION NUMBER(s): [id number] CHEST RADIOGRAPH Indication: sob Technique: Single frontal view of the chest was obtained COMPARISON: XY CHEST PORTABLE on DOS: 08/07/22 FINDINGS: Lines and Tubes: None Lungs: Congestion Pleura: No effusion. No pneumothorax. Cardiomediastinal contours: Cardiomegaly Bones: Unremarkable IMPRESSION: Mild pulmonary vascular congestion ORDERING PHYSICIAN: ANUEL WEEMS PROCEDURE(s): RAC - RENAL ARTERY COMP REASON: ORDER NUMBER(s): [id number], ACCESSION NUMBER(s): [id number] RENAL ULTRASOUND WITH DOPPLER CLINICAL INDICATION: Hypertension TECHNIQUE: Multiple grayscale, color Doppler and spectral Doppler ultrasound images were obtained through the urinary system. COMPARISON: US ABDOMEN COMPLETE SONOGRAM on DOS: 10/26/24 FINDINGS: Right Kidney: Measures 11.2 cm. No hydronephrosis. The intrarenal resistive indices are normal, ranging 0.31-0.63 Systolic acceleration is normal. Peak systolic velocity within the right renal artery is 48 cm/s. The right renal vein is patent. Renal artery PSV / aorta PSV ratio: 2.8 Left Kidney: Measures 11.3 cm. No hydronephrosis. The intrarenal resistive indices are normal, ranging 0.5-0.65. Systolic acceleration is normal. Peak systolic velocity within the right renal artery is 65 cm/s. The left renal vein is patent. Renal artery PSV / aorta PSV ratio: 2 Aorta: Visualized portions are normal in caliber. Peak systolic velocity in the proximal aorta is 136 cm/s. IMPRESSION: Normal size kidneys without evidence of renal artery stenosis or hydronephrosis. ATED BY: RADHA BECKETT MD DICTATED DATE/TIME: 10/27/24 1519 ORDERING PHYSICIAN: ERNIE KUNZ PROCEDURE(s): SMBG - SMALL BOWEL SERIES-W GASTROGRA REASON: abd pain, r/o gastric outlet obstruction and malt, hx h ppyl ORDER NUMBER(s): [id number], ACCESSION NUMBER(s): [id number] SMALL BOWEL FOLLOW-THROUGH REASON FOR EXAMINATION: Abdominal pain. Rule out gastric outlet obstruction. CONTRAST: 180 cc Gastrografin by mouth FLUOROSCOPY TIME: None. IMAGES: 12 images of the abdomen are submitted FINDINGS: The watch technician film was unremarkable. Contrast was administered and serial films were obtained. The stomach was of normal size, position, and contour, without intrinsic or extrinsic mass lesions or mucosal abnormalities. The duodenal bulb and sweep were normal as visualized. There was normal transit time through to the terminal ileum. No filling defects were present. The small bowel is of normal-caliber. Contrast reaches the cecum by 1 hour from the time of ingestion. Contrast reaches the rectum by the which was taken at 3 hours post ingestion. IMPRESSION: No evidence of gastric outlet obstruction or small-bowel obstruction. ATED BY: KAILASH LACY MD DICTATED DATE/TIME: 10/28/24 2165 Condition at Discharge: Stable Final Diagnosis/Problems List #Acute abdominal pain likely peptic ulcer disease #Gastritis and hiatal hernia history #Acute on chronic HFrEF exacerbation #Uncontrolled hypertension #Hypertensive emergency with flash pulmonary edema # possible obstructive sleep apnea # ruled out renal artery stenosis #Likely congestive hepatopathy #Hyperbilirubinemia with Mild transaminitis # alcoholic liver disease #Acute kidney injury due to VMN # Hypokalemia- reolved #Obesity- BMI 41.9 Discharge Disposition: Home Discharge Instruct/Medications Diet: Consistent carbohydrate, Cardiac 2g Na,low cholest Activity: No Restrictions, As Tolerated Follow Up/Referral: Follow-up with discharge Clinic in 1 week Medications: Aspirin 81 mg p.o. daily Atorvastatin calcium 20 mg Spironolactone Jardiance Diovan 1 tablet p.o. daily Hydralazine Scheduled Amlodipine Besylate (Amlodipine Besylate), 10 MG PO DAILY Aspirin (Aspirin Low Dose), 81 MG PO DAILY Atorvastatin Calcium (Atorvastatin Calcium), 20 MG PO HS Carvedilol (Coreg), 6.25 MG PO Q12HR Empagliflozin (Jardiance), 10 MG PO DAILY Furosemide (Furosemide), 40 MG PO BIDD Hydralazine HCl (Hydralazine Hydrochloride), 100 MG PO Q8HR Losartan Potassium (Losartan Potassium), 1 TAB PO DAILY Spironolactone (Aldactone), 25 MG PO DAILY Sucralfate (Carafate Susp), 1 GM PO TID@0600,1130,2200 Discontinued Medications Carvedilol (Coreg), 12.5 MG PO Q12HR Hctz (Hydrochlorothiazide), 50 MG PO DAILY Lisinopril (Lisinopril), 40 MG PO DAILY Discharge Statement: "Patient was advised to return to the ER or call 911 if any headaches, dizziness, shortness of breath, chest pain, abdominal pain, bleeding, fevers, or worsening of medical condition. Patient was counseled about treatment plan, medications, possible side effects, patientverbalized understanding. All questions were answered to the best of my ability. This discharge took greater then 30 minutes in planning, reviewing documentation, counseling the patient, and discussing with other team members." ASSESSMENT ASSESSMENT Assessment Acute abdominal pain likely peptic ulcer disease Date of Service: Oct 29, 2024 Billing Provider: JANE CLEMENTE MD Common Visit Codes: 20120-IBI/OBS DISCH DAY >30min YRIS NORRIS RESIDENT Oct 29, 2024 17:02 JANE CLEMENTE MD Oct 29, 2024 21:23
--- NOTE | 2024-10-31 08:48 | ECG ---
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
== END 2024-10-29 16:34 | disposition home or self-care (01) | DRG 280 ==
LOC: ER 14:25 → OVERFLOW 19:41 → TELE-WESTW 10-27 22:26
PROVIDERS: ADMIT Student in an Organized Health Care Education/Training Program; ATTEND Student in an Organized Health Care Education/Training Program
PROC: 5A09357 Assistance with Respiratory Ventilation, Less than 24 Consecutive Hours, Continuous Positive Airway Pressure (ICD-10-PCS; principal; 2024-10-28)
PROC: 5A09357 Assistance with Respiratory Ventilation, Less than 24 Consecutive Hours, Continuous Positive Airway Pressure (ICD-10-PCS; 2024-10-29)
DX: I21.4 Non-ST elevation (NSTEMI) myocardial infarction (principal); I50.23 Acute on chronic systolic (congestive) heart failure; N17.0 Acute kidney failure with tubular necrosis; I16.1 Hypertensive emergency; Z68.41 Body mass index [BMI] 40.0-44.9, adult; K27.9 Peptic ulcer, site unspecified, unspecified as acute or chronic, without hemorrhage or perforation; I11.0 Hypertensive heart disease with heart failure; E87.6 Hypokalemia; I07.1 Rheumatic tricuspid insufficiency; G47.33 Obstructive sleep apnea (adult) (pediatric); E80.6 Other disorders of bilirubin metabolism; K70.9 Alcoholic liver disease, unspecified; K70.10 Alcoholic hepatitis without ascites; E66.9 Obesity, unspecified; K59.00 Constipation, unspecified; I27.20 Pulmonary hypertension, unspecified; E78.5 Hyperlipidemia, unspecified; Z91.199 Patient's noncompliance with other medical treatment and regimen due to unspecified reason; Z82.3 Family history of stroke; Z79.82 Long term (current) use of aspirin; Z79.899 Other long term (current) drug therapy
CPT/HCPCS: 36415; 71045; 74250; 76700; 80048; 80053; 80307; 80320; 81001; 82088; 82306; 82570; 82607; 83036; 83690; 83735; 83880; 84156; 84244; 84300; 84443; 84484; 85025; 85610; 85730; 93005; 93306; 93975; 94660; 96374; 96375; G0378; J2470; J3480

== ENCOUNTER 2025-03-17 07:56 | Emergency (ER) | payer MEDICAID, OTHER ==
[~2025-03-17] VITALS: Ht 175.3 cm; Wt 125.2 kg
[~2025-03-17 07:56] MED LIST changes: +CARV-214 PO; -CARV-216 PO; +EMPA1TAB PO; +FURO40TA4 PO; -HYDR25TA5 PO; -LISI40TA16 PO; +LOSA-534 PO; +SPIR25TA PO; +SUCR1SUS26 PO
[2025-03-17 08:42] VITALS: BP 209/136; PULSE 92; RESP 18; TEMP 98.3; O2SAT 98
--- NOTE | 2025-03-17 08:43 | ED.PDOC ---
Musculoskeletal HPI Comments A 44 YEAR OLD MALE PRESENTS TO THE ED WITH COMPLAINT OF PAIN TO LEFT FOOT ONSET TWO DAYS AGO. PT STATES THAT PAIN OCCURRED SPONTANEOUSLY. IN THE ED, PT'S FOOT PRESENTS SWOLLEN, PT REPORTS NUMBNESS IN FOOT, AND RATES THE PAIN 10/10. PT NOTES HE DID NOT TAKE HIS HTN MEDICATIONS TODAY. PATIENT DENIES INJURY TO THE AFFECTED AREA, FEVER, CHILLS, SHORTNESS OF BREATH, CHEST PAIN, ABDOMINAL PAIN, NAUSEA, VOMITING, HEADACHE, OR OTHER COMPLAINTS. NO OTHER SYMPTOMS OR MODIFYING FACTORS AT THIS TIME. PATIENT IS ALERT, ORIENTED X 4, AND HAS STEADY GAIT. Chief Complaint: Lower Extremity Time Seen by MD: 08:39 Primary Care Provider: NONE Reviewed Notes: Nurses Notes, Medications, Allergies Allergies: Coded Allergies: NO KNOWN ALLERGIES (Unverified , 08/07/22) Home Meds Active Scripts Tramadol HCl (Tramadol HCl) 50 Mg Tab, 50 MG PO TID, #20 TAB Prov:YOBANY CAMARGO 03/17/25 Prednisone (Prednisone) 20 Mg Tab, 60 MG PO DAILY, #21 MG Prov:YOBANY CAMARGO 03/17/25 Metoprolol Tartrate (Lopressor) 25 Mg Tb, 25 MG PO Q12HR, #30 TAB 0 Refills Prov:YOBANY CAMARGO 03/17/25 Losartan Potassium (Losartan Potassium) 50 Mg Tab, 1 TAB PO DAILY for 30 Days, #30 TAB 5 Refills Prov:GEORGIE DWYER [facility] [place] 10/29/24 Sucralfate (CARAFATE SUSP) 1 Gm/10 Ml Ss, 1 GM PO TID@0600,1130,2200 for 30 Days, #100 ML Prov:GEORGIE DWYER [facility] [place] 10/29/24 Spironolactone (Aldactone) 25 Mg Tab, 25 MG PO DAILY for 30 Days, #30 TAB Check blood pressure before taking medication, if blood pressure less than 120/80, skip a dose. Prov:GEORGIE DWYER 10/29/24 Furosemide (Furosemide) 40 Mg Tab, 40 MG PO BIDD for 30 Days, #60 TAB Prov:GEORGIE DWYER [facility] [place] 10/29/24 Empagliflozin (Jardiance) 10 Mg Tab, 10 MG PO DAILY for 30 Days, #30 TAB Prov:GEORGIE DWYER [facility] [place] 10/29/24 Carvedilol (COREG) 3.125 Mg Tab, 6.25 MG PO Q12HR for 30 Days, #120 TAB Prov:GEORGIE DWYER [facility] 10/29/24 Atorvastatin Calcium (ATORVASTATIN CALCIUM) 20 Mg Tab, 20 MG PO HS for 90 Days, #90 TAB Prov:GEORGIE DWYER [facility] 10/29/24 Aspirin (Aspirin Low Dose) 81 Mg Tab, 81 MG PO DAILY for 90 Days, #90 TAB Prov:GEORGIE DWYER [facility] 10/29/24 Hydralazine HCl (Hydralazine Hydrochloride) 100 Mg Tab, 100 MG PO Q8HR for 90 Days, #270 TAB Prov:TANMAY OCONNELL MD 08/11/22 Amlodipine Besylate (Amlodipine Besylate) 10 Mg Tab, 10 MG PO DAILY for 90 Days, #90 TAB Prov:TANMAY OCONNELL MD 08/11/22 Information Source: Patient Mode of Arrival: Ambulatory Location: Left Extremity Location: Foot Timing: Days Prehospital treatment: None Severity: Moderate Able to Move Extremity: Yes Bear Weight: Limited Pain: Moderate Mechanism: Spontaneous Circumstances: Spontaneous Onset of Symptoms: Spontaneous Symptoms: Swelling, Pain, Erythema, Warmth DVT Risk Factors: NONE Last Tetanus: Unknown Associated signs and symptoms: Foot pain Past Medical History PAST MEDICAL HISTORY: CHF, HTN, PUD Surgical History: Denies all surgeries Family History Family History: Reviewed,noncontributory to illness, Family hx of HTN, Family hx of stroke Social History Smoker: Non-Smoker Alcohol: Occasionally Drugs: Denies Drug Use Lives In: Home Constitutional: denies: chills, diaphoresis, fatigue, fever, malaise, sweats, weakness, others EENTM: denies: blurred vision, double vision, ear bleeding, ear discharge, ear drainage, ear pain, ear ringing, eye pain, eye redness, hearing loss, mouth pa in, mouth swelling, nasal discharge, nose bleeding, nose congestion, nose pain, photophobia, tearing, throat pain, throat swelling, voice changes, others Respiratory: denies: cough, hemoptysis, orthopnea, SOB at rest, shortness of breath, SOB with excertion, stridor, wheezing, others Cardiovascular: denies: chest pain, dizzy spells, diaphoresis, Dyspnea on exertion, edema, irregular heart beat, left arm pain, lightheadedness, palpitations, PND, syncope, others Gastrointestinal: denies: abdomen distended, abdominal pain, blood streaked bowels, constipated, diarrhea, dysphagia, difficulty swallowing, hematemesis, melena, nausea, poor appetite, poor fluid intake, rectal bleeding, rectal pain, vomiting, others Genitourinary: denies: burning, dysuria, flank pain, frequency, hematuria, incontinence, penile discharge, penile sore, pain, testicle pain, testicle swelling, urgency, others Neurological: denies: dizziness, fainting, headache, left sided numbness, left sided weakness, numbness, paresthesia, pre-existing deficit, right sided numbness, right sided weakness, seizure, speech problems, tingling, tremors, weakness, others Musculoskeletal: reports: gout, joint pain, joint swelling; denies: back pain, muscle pain, muscle stiffness, neck pain, others Integumetry: denies: bruises, change in color, change in hair/nails, dryness, laceration, lesions, lumps, rash, wounds, others Allergic/Immunocompromised: denies: Difficulty Healing, Frequent Infections, Hives, Itching, others Hematologic/Lymphatic: denies: anemia, blood clots, easy bleeding, easy bruising, swollen glands, others Endocrine: denies: excessive hunger, excessive sweating, excessive thirst, excessive urination, flushing, intolerance to cold, intolerance to heat, unexplained weight gain, unexplained weight loss, others Psychiatric: denies: anxiety, bipolar disorder, depression, hopeless, panic disorder, schizophrenia, sleepless, suicidal, others All Other Systems: Reviewed and Negative Physical Exam General Appearance: No Apparent Distress, Obese HEENT: Normal ENT Inspection, PERRL/EOMI, Pharynx Normal, TMs Normal Neck: Full Range of Motion, Non-Tender, Normal, Normal Inspection Respiratory: Chest Non-Tender, Lungs Clear, No Accessory Muscle Use, No Respiratory Distress, Normal Breath Sounds Cardiovascular: No Edema, No JVD, No Murmur, No Gallop, Normal Peripheral Pulses, Regular Rate/Rhythm Breast Exam: Deferred Gastrointestinal: No Organomegaly, Non Tender, No Pulsatile Mass, Normal Bowel Sounds, Soft Genitalia: Deferred Pelvic: Deferred Rectal: Deferred Extremities: Decreased range of motion, No calf tenderness, Normal capillary refill, No pedal edema, Swelling (TENDERNESS, SWELLING AND ERYTHEMA AND HEAT ON LEFT DORSAL FOOT, NO BONY TENDERNESS AND DEFORMITY. ) Musculoskeletal : Apperance: Normal Neurologic: Alert, student nurse II-XII nml as Tested, No Motor Deficits, Normal Affect, Normal Mood, No Sensory Deficits Cerebellar Function: Normal Reflexes: Normal Skin: Dry, Normal Color, Warm, Other (LOCALIZED REDNESS, SWELLING AND HEAT ON LEFT DORSAL FOOT, +GOUT. ) Peripheral Pulses: 2+ carotid (R), 2+ carotid (L), 2+ dorsalis pedis (R), 2+ dorsalis pedis (L) Lymphatic: No Adenopathy Was a procedure done? Was a procedure done?: No Differential Diagnosis EXT Differential Diagnosis: Sprain, Gout, Contusion, Strain, Bursitis X-Ray, Labs, Meds, VS Vital Signs Date Time Temp Pulse Resp B/P (MAP) Pulse Ox O2 Delivery O2 Flow Rate FiO2 03/17/25 10:26 63 129/97 03/17/25 10:26 129/97 03/17/25 08:48 92 209/136 03/17/25 08:47 209/136 03/17/25 08:42 92 18 98 Room Air 03/17/25 08:42 98.3 92 18 209/136 (160) 98 98.3 03/17/25 07:57 98.3 86 18 233/161 97 98.3 Lab Test 03/17/25 08:47 Range/Units White Blood Count 8.0 4.4-10.8 10^3/uL Red Blood Count 6.06 H 4.5-5.90 10^6/uL Hemoglobin 18.1 H 13.5-17.5 g/dL Hematocrit 53.1 H 41.0-53.0 % Mean Corpuscular Volume 87.6 80.0-100.0 fL Mean Corpuscular Hemoglobin 29.9 28.0-32.0 pg Mean Corpuscular Hemoglobin Concent 34.1 32.0-36.0 g/dL Red Cell Distribution Width 13.9 11.8-14.3 % Platelet Count 246 140-450 10^3/uL Mean Platelet Volume 8.0 6.9-10.8 fL Neutrophils (%) (Auto) 63.5 37.0-80.0 % Lymphocytes (%) (Auto) 25.0 10.0-50.0 % Monocytes (%) (Auto) 8.5 0.0-12.0 % Eosinophils (%) (Auto) 2.2 0.0-7.0 % Basophils (%) (Auto) 0.8 0.0-2.0 % Neutrophils # (Auto) 5.1 1.6-8.6 10 ^3/uL Lymphocytes # (Auto) 2.0 0.4-5.4 10 ^3/uL Monocytes # (Auto) 0.7 0-1.3 10 ^3/uL Eosinophils # (Auto) 0.2 0-0.8 10 ^3/uL Basophils # (Auto) 0.1 0-0.2 10 ^3/uL Nucleated Red Blood Cells 0.2 % Sodium Level 139 136-145 mmol/L Potassium Level 4.1 3.5-5.1 mmol/L Chloride Level 105 98-107 mmol/L Carbon Dioxide Level 25 20-31 mmol/L Anion Gap 9 5-15 Blood Urea Nitrogen 13 9-23 mg/dL Creatinine 1.31 H 0.700-1.30 mg/dL Glomerular Filtration Rate Calc 70 >90 mL/min BUN/Creatinine Ratio 9.9 L 10.0-20.0 Serum Glucose 119 H 74-106 mg/dL Uric Acid 8.2 3.7-9.2 mg/dL Calcium Level 9.6 8.7-10.4 mg/dL B-Type Natriuretic Peptide 200.88 0-100 pg/mL Current Medications Medications (Trade) Dose Ordered Sig/Nai Route Start Time Stop Time Status Last Admin Methylprednisolone Sodium Succinate (Solu Medrol) 125 mg ONCE ONCE IM 03/17/25 08:45 03/17/25 08:46 DC 03/17/25 08:47 Acetaminophen/ Hydrocodone Bitart (Rochert 10/325MG Tab) 1 tab ONCE ONCE PO 03/17/25 08:45 03/17/25 08:46 DC 03/17/25 08:48 Clonidine HCl (Catapres Tablet) 0.2 mg ONCE ONCE PO 03/17/25 08:45 03/17/25 08:46 DC 03/17/25 08:47 Metoprolol Tartrate (Lopressor Tablet) 50 mg ONCE ONCE PO 03/17/25 08:45 03/17/25 08:46 DC 03/17/25 08:48 X-Ray, Labs, Meds, VS Comment COURSE: EXTERNAL MEDICAL RECORDS REVIEWED: [NONE] INDEPENDENT HISTORIANS: [NONE] SOCIAL DETERMINANTS OF HEALTH: [NONE] LABS ORDERED: CBC, BMP, URIC ACID, BNP REVIEWED AND INTERPRETED RESULTS: NORMAL IMAGING ORDERED: NONE TREATMENTS ORDERED: SOLU-MEDROL 125MG IM, LOPRESSOR 50MG PO, CLONIDINE 0.2MG PO, NORCO 10/325MG PO PROCEDURES PERFORMED: NONE CRITICAL CARE TIME: NONE I HAVE DISCUSSED THE PATIENT WITH THE ATTENDING PHYSICIAN DR. GOULD AND HE AGREES WITH THE PATIENT'S PLAN OF CARE AND DISPOSITION. BASED ON HISTORY OF PRESENT ILLNESS, AND PHYSICAL EXAM, PATIENT WILL BE DISCHARGED HOME. DISCUSSED PLAN FOR DISCHARGE HOME WITH RX [PREDNISONE, LOPRESSOR, AND ULTRAM]. MEDICATION WARNINGS GIVEN. SHARED DECISION MAKING: DISCUSSED WITH PATIENT THAT THEIR WORKUP WAS NORMAL. PATIENT INSTRUCTED TO FOLLOW UP WITH PRIMARY CARE PROVIDER IN 1-2 DAYS FOR RE- EVALUATION OF SYMPTOMS. PATIENT VERBALIZES UNDERSTANDING TO RETURN TO ED FOR NEW OR WORSENING SYMPTOMS OR IF FOLLOW UP WITH PCP CANNOT BE OBTAINED. PATIENT FEELS COMFORTABLE GOING HOME AT THIS TIME. ALL QUESTIONS ADDRESSED AT TIME OF DISCHARGE. Time of 1ST Reevaluation: 10:47 Reevaluation 1ST: Improved Patient Education/Counseling: Diagnosis, Treatment, Need For Follow Up Family Education/Counseling: Diagnosis, Treatment, Need For Follow Up, No Family Present Medical Screening: No EMC Exist At This Time Departure 1 Departure Time of Disposition: 10:50 Impression: Primary Impression: Gout of left foot Qualified Codes: M10.9 - Gout, unspecified Additional Impressions: Hypertension Qualified Codes: I10 - Essential (primary) hypertension Noncompliance with medication regimen Disposition: HOME / SELF CARE / HOMELESS Condition: Stable Additional Instructions: FOLLOW-UP WITH PCP IN 1 TO 2 DAYS. TAKE MEDICATIONS PRESCRIBED. RETURN TO ED FOR ANY NEW OR WORSENING SYMPTOMS. e-Prescriptions Tramadol HCl (Tramadol HCl) 50 Mg Tab 50 MG PO TID, #20 TAB Prov: YOBANY CAMARGO 03/17/25 Prednisone (Prednisone) 20 Mg Tab 60 MG PO DAILY, #21 MG Prov: YOBANY CAMARGO 03/17/25 Metoprolol Tartrate (Lopressor) 25 Mg Tb 25 MG PO Q12HR, #30 TAB 0 Refills Prov: YOBANY CAMARGO 03/17/25 Discharged With: Self, Spouse Critical Care Note Critical Care Time?: No Stability Stability form required: No Heart Score Heart Score: Heart Score Response (Comments) Value History N/A 0 EKG N/A 0 Age N/A 0 Risk Factors N/A 0 Troponin N/A 0 Total 0 I personally scribed for YOBANY CAMARGO ([email or web address]) on 03/17/25 at 08:43. Electronically submitted by Florina Antunez ([email or web address]). I personally scribed for YOBANY CAMARGO ([email or web address]) on 03/17/25 at 08:47. Electronically submitted by John Jim ([email or web address]). I personally scribed for YOBANY CAMARGO ([email or web address]) on 03/17/25 at 10:41. Electronically submitted by John Jim ([email or web address]). YOBANY CAMARGO Mar 17, 2025 08:43
[2025-03-17] MEDS: methylPREDNISolone SOD SUCC 125 MG/2 ML VL IM ONE (08:47)
[2025-03-17] MEDS: HYDROcodone-ACET 10/325MG TAB PO ONE (08:48)
[2025-03-17] MEDS: METOPROLOL TARTRATE 50 MG TAB PO ONE (08:48)
[2025-03-17 09:04] LABS: Hematocrit 53.1 % (41.0-53.0); Hemoglobin 18.1 g/dL (13.5-17.5); Mean Corpuscular Hemoglobin 29.9 pg (28.0-32.0); Mean Corpuscular Volume 87.6 fL (80.0-100.0); Nucleated Red Blood Cells % 0.2 %
[2025-03-17 09:13] LABS: Chloride 105 mmol/L (98-107); Potassium 4.1 mmol/L (3.5-5.1); Sodium 139 mmol/L (136-145)
[2025-03-17 09:14] LABS: Anion Gap 9 (5-15); Carbon Dioxide 25 mmol/L (20-31)
[2025-03-17 09:15] LABS: Calcium 9.6 mg/dL (8.7-10.4)
[2025-03-17 09:19] LABS: Uric Acid 8.2 mg/dL (3.7-9.2)
[2025-03-17 09:20] LABS: BUN/Creatinine Ratio 9.9 (10.0-20.0); Blood Urea Nitrogen 13 mg/dL (9-23)
[2025-03-17 09:23] LABS: Glucose 119 mg/dL (74-106)
[2025-03-17] MEDS ORDERED: TRAM-626 PO (10:39)
[2025-03-17] MEDS ORDERED: PRED20TA2 PO (10:39)
[2025-03-17] MEDS ORDERED: MET25T PO (10:39)
== END 2025-03-17 10:44 | disposition home or self-care (01) ==
LOC: ER 07:56
DX: M10.072 Idiopathic gout, left ankle and foot (principal); I11.0 Hypertensive heart disease with heart failure; I50.9 Heart failure, unspecified; F10.90 Alcohol use, unspecified, uncomplicated; Z79.899 Other long term (current) drug therapy; Z91.148 Patient's other noncompliance with medication regimen for other reason; Z87.11 Personal history of peptic ulcer disease; Z79.84 Long term (current) use of oral hypoglycemic drugs; Z79.82 Long term (current) use of aspirin; Z79.52 Long term (current) use of systemic steroids
CPT/HCPCS: 36415; 80048; 83880; 84550; 85025; 96372; 99284; J2919